=== PATIENT | female | born 1975 | race Caucasian/White ===

== ENCOUNTER 2016-04-19 10:21 | Inpatient (IN) | payer SELFPAY ==
[~2016-04-19] VITALS: Ht 167.6 cm; Wt 153.8 kg
--- NOTE | ~2016-04-19 | CON ---
[place], [place] REPORT OF CONSULTATION NAME: JAKY MCCLOUD [facility] #: [id number] UNIT #: [id number] ROOM: 521 DOCTOR: FLAVIO HORNER MDJUSTIN BIRTHDATE: [birth year] DOS: 04/20/2016 PULMONARY CONSULTATION, EVALUATION AND MANAGEMENT REASON FOR CONSULTATION: Assess the patient for asthma, acute exacerbation. HISTORY OF PRESENT ILLNESS: A 41-year-old white female with known history of bronchial asthma unknown severity presented to the Emergency Room. The patient has developed symptoms of progressive cough with chest congestion, coughing for the past 1 month. The symptoms has been noted progressively worsened. She has been seen in the Emergency Room recently and was given some medications including antibiotics and steroids. The patient stated that she has taken the medication, but failed to show the improvement in the symptoms. The coughing has been noted moderately severely, which was noted nonproductive. Denies symptoms of chest pain. Denies symptoms of wheezing. Tightness in the chest was described at times. REVIEW OF SYSTEMS: CONSTITUTIONAL: Fatigue and tiredness noted without any symptoms of fever or chills. EYES: Denies burning, redness, or tenderness. EARS, NOSE, THROAT SYMPTOMS. Denies sore throat, hoarseness, or otalgia. CARDIOVASCULAR: Denies anginal pain, edema or pain of the lower extremities. GASTROINTESTINAL: No dysphagia, nausea, vomiting, diarrhea, abdominal pain, hematemesis, melena, dysphagia, or abnormal weight loss. SKIN: No lesions or rashes. CENTRAL NERVOUS SYSTEM: No dizziness, headache, diplopia or seizures. Remaining systems were reviewed with the patient and they were noted all negative. PAST MEDICAL HISTORY: 1. Essential hypertension. 2. Gout. 3. Bronchial asthma, unknown severity. 4. Chronic obesity. SOCIAL HISTORY: The patient has been noted past history of cigar use. She denies history of alcohol or illicit drug use. She is single and does not have any children. FAMILY HISTORY: Father at the age of 6767 years old, complication of hypertension and sepsis. Mother at the age of 7676 years old, complications related to stroke. HOME MEDICATIONS: Noted use of Advair 250/50 one puff b.i.d., lisinopril with hydrochlorothiazide 10/12.5 one daily, albuterol sulfate 2.5 mg nebulizer q.i.d. p.r.n. for shortness of breath. DRUG ALLERGIES: Noted no known drug allergies. [place], [place] REPORT OF CONSULTATION NAME: JAKY MCCLOUD [facility] #: [id number] UNIT #: [id number] ROOM: 521 DOCTOR: JUSTIN HOU MD BIRTHDATE: [birth year] PHYSICAL EXAMINATION: GENERAL: A 41-year-old female who has been noted currently awake and alert without any acute distress. Vitals were recorded on current admission with height of 5 feet 6 inches, weight of 339 pounds, BMI of 54.7. VITAL SIGNS: Shows normal temperature, respiratory rate 20-17, heart rate 86, blood pressure 142/69-158/70. Intake is 1050 and output 1200 mL. Pulse oxygen saturation on room air 92% saturation. HEENT: Examination shows head was atraumatic. Eyes nonicterus. NECK: Supple and obese. CARDIOVASCULAR SYSTEM: S1, S2 audible. LUNGS: For the patient noted without any wheeze or crackles at this time. Breaths are noted generally diminished bilaterally. ABDOMEN: Soft, obese, nontender. Bowel sounds present. CENTRAL NERVOUS SYSTEM: No focal deficit. Cranial nerves 2-12 intact. EXTREMITIES: Showed no edema, clubbing, cyanosis. MUSCULOSKELETAL: No deformities. LABORATORY DATA: CBC that was done yesterday of the patient was essentially noted normal except eosinophils of 7%. CMP of the patient which were done yesterday was normal. Chest x-ray PA and lateral of the patient shows evidence of small area of basilar interstitial infiltration of the lower lungs, remaining lungs were noted clear. There was no pleural fluid or finding of congestive heart failure. CBC this morning: WBC count 18.9. Remaining CBC of the patient was noted as normal. PT and PTT were normal today. CMP this morning, glucose 152. Remaining labs were normal. IMPRESSION: 1. The patient who has been currently admitted to the hospital noted with evidence of acute bronchial asthma for this patient with acute tracheobronchitis severity unknown. 2. Leukocytosis secondary to use of corticosteroids. 3. Eosinophilia secondary to allergic bronchial asthma component. 4. Mild hyperglycemia secondary to use of corticosteroids. 5. History of essential hypertension. 6. Chronic severe morbid obesity. PLAN OF TREATMENT: Solu-Medrol for the patient will be gradually reduced. Continue bronchodilators, oxygen supplementation, home medications, antibiotics. Change in treatment will be done based on the progression of the illness. Usual care, other supportive therapy, plan of management and other treatment and care. Thanks for allowing me to participate in the care of this patient. [place], [place] REPORT OF CONSULTATION NAME: JAKY MCCLOUD UNIT #: [id number] ROOM: 521 DOCTOR: JUSTIN HOU MD BIRTHDATE: [birth year] JUSTIN MUNIZ MD CM:CONSTR:REPORT OF CONSULTATION 1007 04/20/16 [facility] interface
[~2016-04-19 10:21] MED LIST: 'PARAFON FORTE500 M1 PO; ADVAIR 250/501 EA INH; ADVAIR 500/501 E1 INH; ALBUTEROL0.09 MG/A2 IH; ALBUTEROL0.09 MG/A2 INH; ALBUTEROL2.5 MG/0.5 INH; AMOXICILLIN500 MG PO; ANTIBIOTIC O500 U/GM TP; ATARAX25 MG PO; CLARITIN10 MG PO; CLINDAMYCIN HC300 MG PO; COLCHICINE0.6 MG PO; CYCLOBENZAPRINE10 MG PO; DAYPRO600 M1 PO; DOXYCYCLINE100 M3 PO; EES400 MG PO; ERYTHROMYCIN OPH1 GM OPH; FLEXERIL10 MG PO; FLONASE 0.05% 121 EA NAS; FLONASE ALLERG9.9 ML NAS; FLOXIN 0.3% 00.25 ML OT; HYDROCODONE BIT1 T11 PO; IBU-8800 MG PO; IBU800 MG PO; INDOCIN25 MG PO; KENALOG0.1% TP; LISINOPRIL AND1 TAB PO; MEDROL DOSEPAK4 MG PO; MOTRIN800 MG PO; NAPROSYN500 MG PO; NORCO 325 MG-51 TAB PO; NORCO 5-325 TA1 EACH PO; OMEPRAZOLE20 MG PO; PREDNICOT10 MG PO; PREDNISONE10 MG PO; PROAIR HFA0.09 MG/AC IH; QVAR 80MCG/INH7.3 G1 IH; ROBITUSSIN AC 110 ML PO; SINGULAIR10 MG PO; TRAMADOL HCL50 MG PO; VENTOLIN 02.5 MG/3 M INH; VENTOLIN,PR2 MG/5 ML PO; VIBRAMYCIN100 MG PO; VICODIN 5/500 505 MG PO; VICODIN 500 MG-1 TAB PO; ZITHROMAX Z PA250 MG PO; ZYRTEC10 MG PO
[2016-04-19 10:39] VITALS: BP 140/69
[2016-04-19 11:05] LABS: BASO % 0.4 % (0.0-1.0); EOS # 0.6 10*3/uL (0.0-0.4); HEMATOCRIT 42.2 % (37.0-47.0); HEMOGLOBIN 13.2 g/dl (12.0-16.0); LYMPH # 1.9 10*3/uL (1.3-4.4); LYMPH % 20.9 % (27.0-41.0); MEAN CELL VOLUME 90.9 fl (81.0-99.0); MEAN CORPUSCULAR HGB 28.4 pg (27.0-31.0); MEAN CORPUSCULAR HGB CONC 31.3 g/dl (33.0-37.0); MEAN PLATELET VOLUME 9.5 fl (9.6-12.3); MONO # 0.4 10*3/uL (0.1-1.0); MONO % 4.1 % (3.0-9.0); NEUT # 6.2 10*3/uL (2.3-7.9); NEUT % 67.3 % (47.0-73.0); PLATELET COUNT AUTOMATED 267 10*3/uL (130-400); RED BLOOD COUNT 4.64 10*6/uL (4.10-5.10); RED CELL DISTRI WIDTH 13.1 % (0-14.5); WHITE BLOOD COUNT 9.2 10*3/uL (4.8-10.8)
[2016-04-19 11:19] LABS: ALBUMIN 3.3 gm/dl (3.1-4.5); ALKALINE PHOSPHATASE 76 U/L (45-117); BILIRUBIN, TOTAL 0.4 mg/dl (0.2-1.0); BUN 7 mg/dl (7-24); CARBON DIOXIDE 25 mmol/L (21-32); CHLORIDE 105 mmol/L (98-107); EST GLOM FILT AFRICAN AMERICAN > 60 ml/min; GLUCOSE 99 mg/dL (65-99); POTASSIUM 4.2 mmol/L (3.5-5.1); SGOT/AST 8 IU/L (3-35); SGPT/ALT 25 U/L (12-78); SODIUM 140 mmol/L (136-145); TOTAL PROTEIN 7.8 gm/dL (6.4-8.2)
[2016-04-19] MEDS ORDERED: ALBUTEROL 3 ML 33 ML INH (11:33)
[2016-04-19 11:46] LABS: BILIRUBIN NEGATIVE (NEGATIVE); BLOOD TRACE-LYSED (NEGATIVE); CLARITY CLEAR (CLEAR); COLOR YELLOW (YELLOW); GLUCOSE NEGATIVE (NEGATIVE); KETONE NEGATIVE (NEGATIVE); LEUKO ESTERASE NEGATIVE (NEGATIVE); NITRITE NEGATIVE (NEGATIVE); PROTEIN NEGATIVE (NEGATIVE); UROBILINOGEN 0.2 E.U./dl (0.2-1.0)
[2016-04-19 11:53] LABS: BACTERIA TRACE; URINE REFLEX COMMENT NO (NO)
[2016-04-19 12:51] VITALS: BP 176/86
[2016-04-19 14:36] VITALS: BP 147/75
[2016-04-19 16:00] VITALS: BP 158/70
[2016-04-19 20:00] VITALS: BP 147/73
[2016-04-20] VITALS: BP 144/54
[2016-04-20 06:49] LABS: BASO % 0.1 % (0.0-1.0); HEMATOCRIT 40.5 % (37.0-47.0); HEMOGLOBIN 12.8 g/dl (12.0-16.0); IG # 0.2 10*3/uL (0.0-0.1); LYMPH # 1.4 10*3/uL (1.3-4.4); LYMPH % 7.2 % (27.0-41.0); MEAN CELL VOLUME 89.6 fl (81.0-99.0); MEAN CORPUSCULAR HGB 28.3 pg (27.0-31.0); MEAN CORPUSCULAR HGB CONC 31.6 g/dl (33.0-37.0); MEAN PLATELET VOLUME 10.1 fl (9.6-12.3); MONO # 0.4 10*3/uL (0.1-1.0); MONO % 2.1 % (3.0-9.0); NEUT % 89.7 % (47.0-73.0); PLATELET COUNT AUTOMATED 295 10*3/uL (130-400); RED BLOOD COUNT 4.52 10*6/uL (4.10-5.10); RED CELL DISTRI WIDTH 13.2 % (0-14.5); WHITE BLOOD COUNT 18.9 10*3/uL (4.8-10.8)
[2016-04-20 07:00] LABS: INTERNATIONAL NORM RATIO 0.9 (2.0-3.5)
[2016-04-20 07:13] LABS: ALBUMIN 3.2 gm/dl (3.1-4.5); ALKALINE PHOSPHATASE 69 U/L (45-117); BILIRUBIN, TOTAL 0.4 mg/dl (0.2-1.0); BUN 11 mg/dl (7-24); CARBON DIOXIDE 24 mmol/L (21-32); CHLORIDE 105 mmol/L (98-107); EST GLOM FILT AFRICAN AMERICAN > 60 ml/min; GLUCOSE 152 mg/dL (65-99); POTASSIUM 4.5 mmol/L (3.5-5.1); SGOT/AST 5 IU/L (3-35); SGPT/ALT 20 U/L (12-78); SODIUM 139 mmol/L (136-145); TOTAL PROTEIN 7.6 gm/dL (6.4-8.2)
[2016-04-20 07:22] LABS: FREE T4 0.99 ng/dl (0.76-1.46); MAGNESIUM 2.2 mg/dL (1.5-2.1); THYROID STIM HORMONE (HS) 0.472 uIU/ml (0.358-4.75)
[2016-04-20 07:53] LABS: HEMOGLOBIN A1c 5.6 % (4.8-5.6)
[2016-04-20 08:00] VITALS: BP 143/69
[2016-04-20 08:32] LABS: FOLIC ACID 6.01 ng/mL (>5.38)
== END 2016-04-20 09:40 | disposition left against medical advice (07) | DRG 202 ==
LOC: ED 10:21 → 5E 13:23 → EDHOLD 13:23 → 5E 14:20
PROVIDERS: Hospitalist; Registered Nurse
DX: J45.901 Unspecified asthma with (acute) exacerbation (principal); Z68.43 Body mass index [BMI] 50.0-59.9, adult; I10 Essential (primary) hypertension; M1A.9XX0 Chronic gout, unspecified, without tophus (tophi); J20.9 Acute bronchitis, unspecified; D72.829 Elevated white blood cell count, unspecified; T38.0X5A Adverse effect of glucocorticoids and synthetic analogues, initial encounter; R73.9 Hyperglycemia, unspecified; E66.01 Morbid (severe) obesity due to excess calories; E66.9 Obesity, unspecified; Z79.899 Other long term (current) drug therapy; Z82.49 Family history of ischemic heart disease and other diseases of the circulatory system; Z82.3 Family history of stroke; Z87.891 Personal history of nicotine dependence

== ENCOUNTER 2016-07-10 06:27 | Emergency (ER) | payer SELFPAY ==
[~2016-07-10] VITALS: Ht 167.6 cm; Wt 127.0 kg
[~2016-07-10 06:27] MED LIST changes: +ALBUTEROL 3 ML 33 ML INH
[2016-07-10 06:33] VITALS: BP 146/82
[2016-07-10 07:08] LABS: BASO % 0.5 % (0.0-1.0); EOS # 0.8 10*3/uL (0.0-0.4); EOS % 12.8 % (1.0-4.0); HEMATOCRIT 38.9 % (37.0-47.0); HEMOGLOBIN 12.5 g/dl (12.0-16.0); LYMPH # 1.4 10*3/uL (1.3-4.4); LYMPH % 21.1 % (27.0-41.0); MEAN CELL VOLUME 87.4 fl (81.0-99.0); MEAN CORPUSCULAR HGB 28.1 pg (27.0-31.0); MEAN CORPUSCULAR HGB CONC 32.1 g/dl (33.0-37.0); MEAN PLATELET VOLUME 9.7 fl (9.6-12.3); MONO # 0.3 10*3/uL (0.1-1.0); MONO % 5.2 % (3.0-9.0); NEUT # 3.9 10*3/uL (2.3-7.9); NEUT % 60.1 % (47.0-73.0); PLATELET COUNT AUTOMATED 216 10*3/uL (130-400); RED BLOOD COUNT 4.45 10*6/uL (4.10-5.10); RED CELL DISTRI WIDTH 12.8 % (0-14.5); WHITE BLOOD COUNT 6.4 10*3/uL (4.8-10.8)
[2016-07-10 07:30] LABS: ALBUMIN 3.2 gm/dl (3.1-4.5); ALKALINE PHOSPHATASE 66 U/L (45-117); BILIRUBIN, TOTAL 0.5 mg/dl (0.2-1.0); BUN 6 mg/dl (7-24); CARBON DIOXIDE 27 mmol/L (21-32); CHLORIDE 107 mmol/L (98-107); EST GLOM FILT AFRICAN AMERICAN > 60 ml/min; GLUCOSE 93 mg/dL (65-99); POTASSIUM 3.8 mmol/L (3.5-5.1); SGOT/AST 14 IU/L (3-35); SGPT/ALT 26 U/L (12-78); SODIUM 141 mmol/L (136-145); TOTAL PROTEIN 7.3 gm/dL (6.4-8.2)
[2016-07-10] MEDS ORDERED: PREDNISONE20 M1 PO (08:06)
== END 2016-07-10 08:14 | disposition home or self-care (01) ==
LOC: ED 06:27
PROVIDERS: Family Medicine Sports Medicine
DX: J45.21 Mild intermittent asthma with (acute) exacerbation (principal); I10 Essential (primary) hypertension; M10.9 Gout, unspecified; Z87.891 Personal history of nicotine dependence; Z98.890 Other specified postprocedural states; Z79.899 Other long term (current) drug therapy

== ENCOUNTER 2016-08-05 19:35 | Emergency (ER) | payer SELFPAY ==
[~2016-08-05] VITALS: Ht 167.6 cm; Wt 127.0 kg
[~2016-08-05 19:35] MED LIST changes: +PREDNISONE20 M1 PO
[2016-08-05 19:41] VITALS: BP 169/93
[2016-08-05] MEDS ORDERED: ALBUTEROL2.5 MG/0.5 INH (20:29)
[2016-08-05] MEDS ORDERED: PROVENTIL0.09 MG/A1 INH (20:29)
[2016-08-05] MEDS ORDERED: PREDNISONE10 MG PO (20:31)
[2016-08-05] MEDS ORDERED: ZITHROMAX250 MG PO (20:47)
== END 2016-08-05 21:01 | disposition home or self-care (01) ==
LOC: ED 19:35
DX: J45.909 Unspecified asthma, uncomplicated (principal); F17.200 Nicotine dependence, unspecified, uncomplicated

== ENCOUNTER 2016-09-12 12:22 | Emergency (ER) | payer OTHER ==
[~2016-09-12] VITALS: Ht 167.6 cm; Wt 127.0 kg
[~2016-09-12 12:22] MED LIST changes: +PROVENTIL0.09 MG/A1 INH; +ZITHROMAX250 MG PO
[2016-09-12 12:50] VITALS: BP 146/88
[2016-09-12] MEDS ORDERED: VENTOLIN H0.09 MG/AC INH (14:12)
[2016-09-12] MEDS ORDERED: CYCLOBENZAPRINE10 MG PO (14:12)
[2016-09-12] MEDS ORDERED: Motrin,Rufen800 MG PO (14:12)
== END 2016-09-12 14:22 | disposition home or self-care (01) ==
LOC: ED 12:22
DX: S39.012A Strain of muscle, fascia and tendon of lower back, initial encounter (principal); X58.XXXA Exposure to other specified factors, initial encounter; Y93.89 Activity, other specified; Y92.89 Other specified places as the place of occurrence of the external cause; Y99.8 Other external cause status

== ENCOUNTER 2016-11-25 19:09 | Emergency (ER) | payer SELFPAY ==
[~2016-11-25] VITALS: Ht 167.6 cm; Wt 124.7 kg
[~2016-11-25 19:09] MED LIST changes: +Motrin,Rufen800 MG PO; +VENTOLIN H0.09 MG/AC INH
[2016-11-25 19:17] VITALS: BP 161/82
[2016-11-25] MEDS ORDERED: PREDNISONE10 MG PO (20:28)
[2016-11-25] MEDS ORDERED: DUONEB 3 MG/3 ML3 M1 INH (20:28)
== END 2016-11-25 23:08 | disposition home or self-care (01) ==
LOC: ED 19:09
DX: J45.909 Unspecified asthma, uncomplicated (principal); R03.0 Elevated blood-pressure reading, without diagnosis of hypertension; M10.9 Gout, unspecified

== ENCOUNTER 2016-12-13 10:43 | Emergency (ER) | payer SELFPAY ==
[~2016-12-13] VITALS: Wt 127.0 kg
[~2016-12-13 10:43] MED LIST changes: +DUONEB 3 MG/3 ML3 M1 INH
[2016-12-13 10:53] VITALS: BP 115/51
[2016-12-13] MEDS ORDERED: NORCO 5-325 TA1 EACH PO (12:09)
== END 2016-12-13 12:20 | disposition home or self-care (01) ==
LOC: ED 10:43
DX: M54.41 Lumbago with sciatica, right side (principal); Z87.891 Personal history of nicotine dependence; Z98.890 Other specified postprocedural states; Z79.899 Other long term (current) drug therapy; W10.8XXA Fall (on) (from) other stairs and steps, initial encounter; Y93.89 Activity, other specified; Y92.89 Other specified places as the place of occurrence of the external cause; Y99.9 Unspecified external cause status

== ENCOUNTER 2017-01-26 10:47 | Emergency (ER) | payer SELFPAY ==
[~2017-01-26] VITALS: Ht 167.6 cm; Wt 127.0 kg
[2017-01-26 10:55] VITALS: BP 120/84
[2017-01-26] MEDS ORDERED: CLARITIN10 MG PO (11:01)
[2017-01-26] MEDS ORDERED: FLONASE ALLERG9.9 ML NAS (11:01)
[2017-01-26] MEDS ORDERED: DUONEB 3 MG/3 ML3 M1 INH (11:01)
[2017-01-26] MEDS ORDERED: PREDNISONE10 MG PO (11:01)
== END 2017-01-26 11:37 | disposition home or self-care (01) ==
LOC: ED 10:47
DX: J45.901 Unspecified asthma with (acute) exacerbation (principal); R03.0 Elevated blood-pressure reading, without diagnosis of hypertension

== ENCOUNTER 2017-03-27 06:14 | Emergency (ER) | payer OTHER ==
[~2017-03-27] VITALS: Ht 165.1 cm; Wt 127.0 kg
[2017-03-27 06:28] VITALS: BP 147/59
[2017-03-27] MEDS ORDERED: Motrin,Rufen800 MG PO (07:34)
== END 2017-03-27 08:41 | disposition home or self-care (01) ==
LOC: ED 06:14
DX: S83.91XA Sprain of unspecified site of right knee, initial encounter (principal); I10 Essential (primary) hypertension; J45.909 Unspecified asthma, uncomplicated; F10.10 Alcohol abuse, uncomplicated; W22.8XXA Striking against or struck by other objects, initial encounter; Y93.89 Activity, other specified; Y92.098 Other place in other non-institutional residence as the place of occurrence of the external cause; Y99.0 Civilian activity done for income or pay

== ENCOUNTER 2017-04-16 18:53 | Emergency (ER) | payer OTHER ==
[~2017-04-16] VITALS: Ht 167.6 cm; Wt 127.0 kg
[2017-04-16 19:59] VITALS: BP 136/72
== END 2017-04-16 20:40 | disposition home or self-care (01) ==
LOC: ED 18:53
DX: S29.011A Strain of muscle and tendon of front wall of thorax, initial encounter (principal); Z98.890 Other specified postprocedural states; X50.1XXA Overexertion from prolonged static or awkward postures, initial encounter; Y93.89 Activity, other specified; Y92.098 Other place in other non-institutional residence as the place of occurrence of the external cause; Y99.9 Unspecified external cause status

== ENCOUNTER 2017-04-23 05:25 | Emergency (ER) | payer OTHER ==
[~2017-04-23] VITALS: Ht 167.6 cm; Wt 127.0 kg
[2017-04-23 05:34] VITALS: BP 170/66
[2017-04-23] MEDS ORDERED: DUONEB 3 MG/3 ML3 M1 INH (06:18)
[2017-04-23] MEDS ORDERED: KETOROLAC10 MG PO (06:18)
[2017-04-23] MEDS ORDERED: ZITHROMAX250 MG PO (06:24)
== END 2017-04-23 06:43 | disposition home or self-care (01) ==
LOC: ED 05:25
DX: S23.41XA Sprain of ribs, initial encounter (principal); J40 Bronchitis, not specified as acute or chronic; J45.909 Unspecified asthma, uncomplicated; M10.9 Gout, unspecified; I10 Essential (primary) hypertension; Z79.899 Other long term (current) drug therapy; X58.XXXA Exposure to other specified factors, initial encounter; Y93.89 Activity, other specified; Y92.89 Other specified places as the place of occurrence of the external cause; Y99.8 Other external cause status

== ENCOUNTER 2017-06-02 22:13 | Emergency (ER) | payer OTHER ==
[~2017-06-02] VITALS: Ht 167.6 cm; Wt 124.7 kg
[~2017-06-02 22:13] MED LIST changes: +KETOROLAC10 MG PO
[2017-06-02] MEDS ORDERED: PREDNISONE10 MG PO (23:10)
[2017-06-02] MEDS ORDERED: ALBUTEROL2.5 MG/0.5 INH (23:10)
[2017-06-02 23:26] VITALS: BP 144/80
== END 2017-06-02 23:58 | disposition home or self-care (01) ==
LOC: ED 22:13
DX: J45.901 Unspecified asthma with (acute) exacerbation (principal); F10.10 Alcohol abuse, uncomplicated; Z91.048 Other nonmedicinal substance allergy status; Z79.899 Other long term (current) drug therapy

== ENCOUNTER 2017-06-23 13:52 | Emergency (ER) | payer OTHER ==
[~2017-06-23] VITALS: Ht 167.6 cm; Wt 127.0 kg
[2017-06-23] MEDS ORDERED: DUONEB 3 MG/3 ML3 M1 INH (14:56)
[2017-06-23] MEDS ORDERED: ADVAIR 250/501 EA INH (14:56)
[2017-06-23] MEDS ORDERED: PREDNISONE10 MG PO ×2 (14:59→15:20)
[2017-06-23 15:20] VITALS: BP 147/79
[2017-06-23] MEDS ORDERED: AVPAK AZITHROM250 M1 PO (15:20)
== END 2017-06-23 15:24 | disposition home or self-care (01) ==
LOC: ED 13:52
DX: J45.901 Unspecified asthma with (acute) exacerbation (principal); M79.644 Pain in right finger(s)

== ENCOUNTER → 2017-07-10 | Outpatient (CLI) | payer OTHER ==
[~2017-07-10] MED LIST changes: +AVPAK AZITHROM250 M1 PO
== END | disposition home or self-care (01) ==
LOC: RESCLI 02:32
DX: Z12.31 Encounter for screening mammogram for malignant neoplasm of breast (principal); I10 Essential (primary) hypertension; R60.0 Localized edema; F33.1 Major depressive disorder, recurrent, moderate; M19.90 Unspecified osteoarthritis, unspecified site; E66.01 Morbid (severe) obesity due to excess calories; J45.909 Unspecified asthma, uncomplicated; Z76.89 Persons encountering health services in other specified circumstances

== ENCOUNTER 2017-08-13 19:21 | Emergency (ER) | payer OTHER ==
[~2017-08-13] VITALS: Ht 172.7 cm; Wt 113.4 kg
[2017-08-13 19:31] VITALS: BP 126/74
[2017-08-13 20:45] LABS: BASO % 0.5 % (0.0-1.0); EOS # 0.3 10*3/uL (0.0-0.4); EOS % 4.9 % (1.0-4.0); HEMATOCRIT 37.9 % (37.0-47.0); HEMOGLOBIN 11.9 g/dl (12.0-16.0); LYMPH # 0.9 10*3/uL (1.3-4.4); LYMPH % 15.3 % (27.0-41.0); MEAN CELL VOLUME 91.8 fl (81.0-99.0); MEAN CORPUSCULAR HGB 28.8 pg (27.0-31.0); MEAN CORPUSCULAR HGB CONC 31.4 g/dl (33.0-37.0); MONO # 0.5 10*3/uL (0.1-1.0); MONO % 8.7 % (3.0-9.0); NEUT # 3.9 10*3/uL (2.3-7.9); NEUT % 70.2 % (47.0-73.0); PLATELET COUNT AUTOMATED 202 10*3/uL (130-400); RED BLOOD COUNT 4.13 10*6/uL (4.10-5.10); RED CELL DISTRI WIDTH 13.2 % (0-14.5); WHITE BLOOD COUNT 5.5 10*3/uL (4.8-10.8)
[2017-08-13 21:05] LABS: ALKALINE PHOSPHATASE 64 U/L (45-117); BUN 13 mg/dl (7-24); CHLORIDE 106 mmol/L (98-107); CREATININE 0.69 mg/dL (0.55-1.02); POTASSIUM 3.9 mmol/L (3.5-5.1); SGOT/AST 11 IU/L (3-35); SGPT/ALT 19 U/L (12-78); SODIUM 139 mmol/L (136-145); TOTAL PROTEIN 6.5 gm/dL (6.4-8.2)
[2017-08-13 21:24] LABS: BILIRUBIN NEGATIVE (NEGATIVE); BLOOD NEGATIVE (NEGATIVE); CLARITY SL CLOUDY (CLEAR); COLOR YELLOW (YELLOW); GLUCOSE NEGATIVE (NEGATIVE); KETONE NEGATIVE (NEGATIVE); LEUKO ESTERASE NEGATIVE (NEGATIVE); NITRITE NEGATIVE (NEGATIVE); UROBILINOGEN 0.2 E.U./dl (0.2-1.0)
[2017-08-13 21:32] LABS: BACTERIA TRACE; EPITHELIAL CELLS 16-20
[2017-08-13] MEDS ORDERED: DOXYCYCLINE100 M3 PO (22:07)
== END 2017-08-13 22:18 | disposition home or self-care (01) ==
LOC: ED 19:21
PROVIDERS: Nurse Practitioner
DX: J32.1 Chronic frontal sinusitis (principal); I10 Essential (primary) hypertension

== ENCOUNTER 2017-10-21 20:34 | Emergency (ER) | payer OTHER ==
[~2017-10-21] VITALS: Ht 167.6 cm; Wt 127.0 kg
[2017-10-21 21:44] LABS: BASO % 0.3 % (0.0-1.0); EOS # 0.5 10*3/uL (0.0-0.4); EOS % 7.5 % (1.0-4.0); HEMOGLOBIN 12.1 g/dl (12.0-16.0); LYMPH # 1.4 10*3/uL (1.3-4.4); LYMPH % 19.9 % (27.0-41.0); MEAN CELL VOLUME 91.1 fl (81.0-99.0); MEAN CORPUSCULAR HGB 27.6 pg (27.0-31.0); MEAN CORPUSCULAR HGB CONC 30.3 g/dl (33.0-37.0); MEAN PLATELET VOLUME 9.3 fl (9.6-12.3); MONO # 0.4 10*3/uL (0.1-1.0); MONO % 5.2 % (3.0-9.0); NEUT # 4.7 10*3/uL (2.3-7.9); NEUT % 66.7 % (47.0-73.0); PLATELET COUNT AUTOMATED 246 10*3/uL (130-400); RED BLOOD COUNT 4.39 10*6/uL (4.10-5.10); RED CELL DISTRI WIDTH 13.7 % (0-14.5); WHITE BLOOD COUNT 7.1 10*3/uL (4.8-10.8)
[2017-10-21 22:00] LABS: ALBUMIN 3.3 gm/dl (3.1-4.5); ALKALINE PHOSPHATASE 66 U/L (45-117); BUN 13 mg/dl (7-24); CHLORIDE 111 mmol/L (98-107); POTASSIUM 4.6 mmol/L (3.5-5.1); SGOT/AST 11 IU/L (3-35); SGPT/ALT 16 U/L (12-78); SODIUM 143 mmol/L (136-145); TOTAL PROTEIN 7.2 gm/dL (6.4-8.2)
[2017-10-21 22:04] LABS: TROPONIN I < 0.015 ng/ml (<0.045)
[2017-10-21] MEDS ORDERED: LASIX20 MG PO (22:05)
[2017-10-21 22:24] VITALS: BP 125/54
[2017-12-06] MEDS ORDERED: PREDNISONE50 MG PO (20:15)
[2017-12-06] MEDS ORDERED: DOXYCYCLINE100 M3 PO (20:15)
[2017-12-06] MEDS ORDERED: LISINOPRIL10 M1 PO (20:15)
[2017-12-06] MEDS ORDERED: ROBITUSSIN DM 101 OZ PO (20:15)
[2017-12-06] MEDS ORDERED: ALBUTEROL0.63 MG/3 INH (20:15)
== END 2017-10-21 22:30 | disposition home or self-care (01) ==
LOC: ED 20:34
PROVIDERS: Student in an Organized Health Care Education/Training Program
DX: M79.89 Other specified soft tissue disorders (principal); M79.604 Pain in right leg; M79.605 Pain in left leg; I10 Essential (primary) hypertension; J45.909 Unspecified asthma, uncomplicated

== ENCOUNTER → 2018-01-03 | Outpatient (CLI) | payer OTHER ==
[~2018-01-03] MED LIST changes: +ALBUTEROL0.63 MG/3 INH; +AVPAK AZITHROM250 MG PO; +DELTASONE20 M1 PO; +GUAIFENESIN600 MG PO; +LASIX20 MG PO; +LISINOPRIL10 M1 PO; +PREDNISONE50 MG PO; +PROVENTIL HFA6.7 GM INH; +ROBITUSSIN DM 101 OZ PO
== END | disposition home or self-care (01) ==
LOC: US 11:30
DX: M79.661 Pain in right lower leg (principal); R60.0 Localized edema

== ENCOUNTER 2018-01-06 12:31 | Emergency (ER) | payer OTHER ==
[~2018-01-06] VITALS: Ht 162.5 cm; Wt 127.0 kg
[~2018-01-06 12:31] MED LIST changes: -AVPAK AZITHROM250 MG PO; -DELTASONE20 M1 PO; -GUAIFENESIN600 MG PO; -PROVENTIL HFA6.7 GM INH
[2018-01-06 12:38] VITALS: BP 160/54
[2018-03-19] MEDS ORDERED: AVPAK AZITHROM250 MG PO (08:48)
[2018-03-19] MEDS ORDERED: GUAIFENESIN600 MG PO (08:48)
[2018-03-19] MEDS ORDERED: PREDNISONE10 MG PO (08:48)
== END 2018-01-06 14:08 | disposition home or self-care (01) ==
LOC: ED 12:31
DX: M25.571 Pain in right ankle and joints of right foot (principal); Z87.891 Personal history of nicotine dependence; Z79.899 Other long term (current) drug therapy; Z98.890 Other specified postprocedural states; W19.XXXA Unspecified fall, initial encounter; Y93.89 Activity, other specified; Y92.89 Other specified places as the place of occurrence of the external cause; Y99.9 Unspecified external cause status

== ENCOUNTER 2018-02-15 08:55 | Emergency (ER) | payer OTHER ==
[~2018-02-15] VITALS: Ht 165.1 cm; Wt 127.0 kg
[2018-02-15 08:59] VITALS: BP 151/75
[2018-02-15] MEDS ORDERED: PROVENTIL HFA6.7 GM INH (10:46)
[2018-02-15] MEDS ORDERED: VIBRAMYCIN100 MG PO (10:46)
[2018-02-15] MEDS ORDERED: DELTASONE20 M1 PO (10:46)
[2018-03-19] MEDS ORDERED: AVPAK AZITHROM250 MG PO (08:48)
[2018-03-19] MEDS ORDERED: PREDNISONE10 MG PO (08:48)
[2018-03-19] MEDS ORDERED: GUAIFENESIN600 MG PO (08:48)
== END 2018-02-15 11:05 | disposition home or self-care (01) ==
LOC: ED 08:55
DX: J44.1 Chronic obstructive pulmonary disease with (acute) exacerbation (principal); I10 Essential (primary) hypertension; Z91.048 Other nonmedicinal substance allergy status; Z79.899 Other long term (current) drug therapy; Z79.2 Long term (current) use of antibiotics; Z87.891 Personal history of nicotine dependence

== ENCOUNTER 2018-02-27 13:17 | Emergency (ER) | payer OTHER ==
[~2018-02-27] VITALS: Ht 165.1 cm; Wt 127.0 kg
[~2018-02-27 13:17] MED LIST changes: +DELTASONE20 M1 PO; +PROVENTIL HFA6.7 GM INH
[2018-02-27 13:19] VITALS: BP 145/63
[2018-02-27] MEDS ORDERED: NORCO 5-325 TA1 EACH PO (15:24)
[2018-02-27] MEDS ORDERED: Motrin,Rufen800 MG PO (15:24)
[2018-03-19] MEDS ORDERED: PREDNISONE10 MG PO (08:48)
[2018-03-19] MEDS ORDERED: GUAIFENESIN600 MG PO (08:48)
[2018-03-19] MEDS ORDERED: AVPAK AZITHROM250 MG PO (08:48)
== END 2018-02-27 15:28 | disposition home or self-care (01) ==
LOC: ED 13:17
DX: S70.02XA Contusion of left hip, initial encounter (principal); M25.562 Pain in left knee; J44.9 Chronic obstructive pulmonary disease, unspecified; I10 Essential (primary) hypertension; Z87.891 Personal history of nicotine dependence; Z91.048 Other nonmedicinal substance allergy status; Z79.899 Other long term (current) drug therapy; Z79.2 Long term (current) use of antibiotics; W18.2XXA Fall in (into) shower or empty bathtub, initial encounter; Y93.89 Activity, other specified; Y92.098 Other place in other non-institutional residence as the place of occurrence of the external cause; Y99.8 Other external cause status

== ENCOUNTER 2018-03-02 13:15 | Emergency (ER) | payer OTHER ==
[~2018-03-02] VITALS: Ht 165.1 cm; Wt 127.0 kg
[2018-03-02 13:17] VITALS: BP 150/66
[2018-03-19] MEDS ORDERED: AVPAK AZITHROM250 MG PO (08:48)
[2018-03-19] MEDS ORDERED: GUAIFENESIN600 MG PO (08:48)
[2018-03-19] MEDS ORDERED: PREDNISONE10 MG PO (08:48)
== END 2018-03-02 13:41 | disposition home or self-care (01) ==
LOC: ED 13:15
DX: M25.552 Pain in left hip (principal); I10 Essential (primary) hypertension; J44.9 Chronic obstructive pulmonary disease, unspecified; M10.9 Gout, unspecified; W19.XXXA Unspecified fall, initial encounter; Y93.89 Activity, other specified; Y92.89 Other specified places as the place of occurrence of the external cause; Y99.8 Other external cause status

== ENCOUNTER 2018-03-16 07:00 | Emergency (ER) | payer OTHER ==
[~2018-03-16] VITALS: Ht 167.6 cm; Wt 127.0 kg
[2018-03-16 07:00] VITALS: BP 171/75
[2018-03-16 07:42] LABS: BASO # 0.1 10*3/uL (0.0-0.1); BASO % 0.6 % (0.0-1.0); EOS # 0.9 10*3/uL (0.0-0.4); EOS % 9.7 % (1.0-4.0); HEMATOCRIT 39.9 % (37.0-47.0); HEMOGLOBIN 12.2 g/dl (12.0-16.0); LYMPH # 1.2 10*3/uL (1.3-4.4); MEAN CELL VOLUME 90.5 fl (81.0-99.0); MEAN CORPUSCULAR HGB 27.7 pg (27.0-31.0); MEAN CORPUSCULAR HGB CONC 30.6 g/dl (33.0-37.0); MEAN PLATELET VOLUME 9.4 fl (9.6-12.3); MONO # 0.5 10*3/uL (0.1-1.0); MONO % 5.4 % (3.0-9.0); NEUT # 6.7 10*3/uL (2.3-7.9); NEUT % 70.7 % (47.0-73.0); PLATELET COUNT AUTOMATED 252 10*3/uL (130-400); RED BLOOD COUNT 4.41 10*6/uL (4.10-5.10); RED CELL DISTRI WIDTH 14.1 % (0-14.5); WHITE BLOOD COUNT 9.5 10*3/uL (4.8-10.8)
[2018-03-16 07:57] LABS: ALBUMIN 3.2 gm/dl (3.1-4.5); ALKALINE PHOSPHATASE 68 U/L (45-117); BUN 9 mg/dl (7-24); CHLORIDE 105 mmol/L (98-107); CREATININE 0.83 mg/dL (0.55-1.02); SGOT/AST 8 IU/L (3-35); SGPT/ALT 14 U/L (12-78); SODIUM 140 mmol/L (136-145); TOTAL PROTEIN 7.2 gm/dL (6.4-8.2)
[2018-03-16] MEDS ORDERED: PREDNISONE20 M1 PO (08:26)
[2018-03-16] MEDS ORDERED: ADVAIR 250/501 EA INH (23:20)
[2018-03-19] MEDS ORDERED: AVPAK AZITHROM250 MG PO (08:48)
[2018-03-19] MEDS ORDERED: PREDNISONE10 MG PO (08:48)
[2018-03-19] MEDS ORDERED: GUAIFENESIN600 MG PO (08:48)
== END 2018-03-16 08:34 | disposition home or self-care (01) ==
LOC: ED 07:00
PROVIDERS: Internal Medicine Nephrology
DX: J44.1 Chronic obstructive pulmonary disease with (acute) exacerbation (principal); I10 Essential (primary) hypertension

== ENCOUNTER 2018-08-03 11:19 | Emergency (ER) | payer OTHER ==
[~2018-08-03] VITALS: Ht 165.1 cm
--- NOTE | ~2018-08-03 | EKG ---
[place], [place] ELECTROCARDIOGRAM REPORT NAME: JAKY MCCLOUD UNIT #: [id number] ROOM: DOCTOR: EPIPHANY DRAFT REPORT BIRTHDATE: [birth year] [facility] Test Date: 2018-08-03 Test Time: 12:19:28 Pat Name: JAKY MCCLOUD Department: Room: Gender: F Mule Driver: [facility] : 1975 Requested By: XENIA MARTINEZ Order Number: [id number] Reading MD: Jairon Gill MD Measurements Intervals [place] Rate: 69 P: 13 TN: 197 QRS: -2 QRSD: 81 T: 12 QT: 389 QTc: 417 Interpretive Statements Sinus rhythm LVH by voltage Compared to ECG 12/06/2017 19:17:06 No significant changes Electronically Signed On 08-05-2018 7:56:47 PDT by Jairon Gill MD CM:EKGRPT:ELECTROCARDIOGRAM REPORT [id number] XENIA MARTINEZ MD EPIPHANY DRAFT REPORT XENIA MARTINEZ MD
[~2018-08-03 11:19] MED LIST changes: +AVPAK AZITHROM250 MG PO; +GUAIFENESIN600 MG PO
[2018-08-03 11:52] LABS: BASO # 0.1 10*3/uL (0.0-0.1); BASO % 0.8 % (0.0-1.0); EOS # 0.5 10*3/uL (0.0-0.4); EOS % 8.3 % (1.0-4.0); HEMATOCRIT 39.1 % (37.0-47.0); HEMOGLOBIN 12.3 g/dl (12.0-16.0); LYMPH # 1.2 10*3/uL (1.3-4.4); LYMPH % 19.7 % (27.0-41.0); MEAN CELL VOLUME 90.3 fl (81.0-99.0); MEAN CORPUSCULAR HGB 28.4 pg (27.0-31.0); MEAN CORPUSCULAR HGB CONC 31.5 g/dl (33.0-37.0); MEAN PLATELET VOLUME 9.2 fl (9.6-12.3); MONO # 0.4 10*3/uL (0.1-1.0); MONO % 6.4 % (3.0-9.0); NEUT % 64.5 % (47.0-73.0); PLATELET COUNT AUTOMATED 251 10*3/uL (130-400); RED BLOOD COUNT 4.33 10*6/uL (4.10-5.10); RED CELL DISTRI WIDTH 13.2 % (0-14.5); WHITE BLOOD COUNT 6.1 10*3/uL (4.8-10.8)
[2018-08-03 12:02] LABS: ACT PARTIAL THROMBO TIME 25.5 SECONDS (20.8-31.5)
[2018-08-03 12:09] LABS: ALBUMIN 3.2 gm/dl (3.1-4.5); ALKALINE PHOSPHATASE 62 U/L (45-117); BUN 13 mg/dl (7-24); CHLORIDE 108 mmol/L (98-107); CREATININE 0.74 mg/dL (0.55-1.02); POTASSIUM 4.1 mmol/L (3.5-5.1); SGOT/AST 10 IU/L (3-35); SGPT/ALT 17 U/L (12-78); SODIUM 139 mmol/L (136-145); TOTAL PROTEIN 7.2 gm/dL (6.4-8.2)
[2018-08-03 12:11] LABS: TROPONIN I < 0.015 ng/ml (<0.045)
[2018-08-03 12:28] VITALS: BP 150/60
--- NOTE | 2018-08-03 12:34 | NUR ---
EKG ORDERED AT 1122AM. I WAS NOT NOTIFIED. EKG DONE AT 1219PM BY TECH
[2018-08-03] MEDS ORDERED: Ipratropium Brom3 ML INH ×2 (12:41→13:12)
[2018-08-03] MEDS ORDERED: VIBRAMYCIN100 MG PO ×2 (12:41→13:12)
[2018-08-03] MEDS ORDERED: POLYSPORIN OINT15 GM T ×2 (12:41→13:12)
[2018-08-03] MEDS ORDERED: ALBUTEROL2.5 MG/0.5 INH ×2 (12:41→13:12)
[2018-08-03] MEDS ORDERED: PREDNISONE50 MG PO ×2 (12:41→13:12)
[2018-10-12] MEDS ORDERED: LISINOPRIL20 MG PO (22:45)
[2018-10-12] MEDS ORDERED: BUMETANIDE1 MG PO (22:46)
[2018-10-12] MEDS ORDERED: ALDACTONE25 M1 PO (22:47)
[2018-10-12] MEDS ORDERED: WELLBUTRIN XL150 MG PO (22:49)
[2018-10-15] MEDS ORDERED: AUGMENTIN 875875 MG PO (17:40)
[2018-10-15] MEDS ORDERED: VITAMIN D5000 UNI1 PO (17:40)
[2018-10-15] MEDS ORDERED: B12,B-12,B 12500 MC1 PO (17:40)
[2018-10-15] MEDS ORDERED: PAROXETINE HCL20 MG PO (17:40)
== END 2018-08-03 12:52 | disposition home or self-care (01) ==
LOC: ED 11:19
PROVIDERS: Emergency Medicine
DX: J45.901 Unspecified asthma with (acute) exacerbation (principal); L03.115 Cellulitis of right lower limb; M79.89 Other specified soft tissue disorders; I87.2 Venous insufficiency (chronic) (peripheral); I10 Essential (primary) hypertension; E66.01 Morbid (severe) obesity due to excess calories; Z91.048 Other nonmedicinal substance allergy status; Z79.899 Other long term (current) drug therapy; Z79.2 Long term (current) use of antibiotics

== ENCOUNTER → 2018-09-11 | Outpatient (CLI) | payer OTHER ==
[~2018-09-11] MED LIST changes: +ALDACTONE25 M1 PO; +AUGMENTIN 875875 MG PO; +B12,B-12,B 12500 MC1 PO; +BUMETANIDE1 MG PO; +Ipratropium Brom3 ML INH; +LISINOPRIL20 MG PO; +PAROXETINE HCL20 MG PO; +POLYSPORIN OINT15 GM T; +VITAMIN D5000 UNI1 PO; +WELLBUTRIN XL150 MG PO
== END ==
LOC: RESCLI 00:45
DX: L03.90 Cellulitis, unspecified (principal); J45.909 Unspecified asthma, uncomplicated; F33.1 Major depressive disorder, recurrent, moderate; I10 Essential (primary) hypertension; E66.01 Morbid (severe) obesity due to excess calories; Z79.899 Other long term (current) drug therapy

== ENCOUNTER → 2018-11-08 | Outpatient (CLI) | payer OTHER | END | disposition home or self-care (01) | LOC: RESCLI 02:04 | DX: J45.909 Unspecified asthma, uncomplicated (principal); I10 Essential (primary) hypertension; M54.6 Pain in thoracic spine; E66.01 Morbid (severe) obesity due to excess calories; M25.562 Pain in left knee; M79.605 Pain in left leg; F33.1 Major depressive disorder, recurrent, moderate; L03.115 Cellulitis of right lower limb; R60.9 Edema, unspecified; Z79.899 Other long term (current) drug therapy ==

== ENCOUNTER 2018-12-28 17:08 | Emergency (ER) | payer OTHER ==
[~2018-12-28] VITALS: Ht 167.6 cm; Wt 136.1 kg
[2018-12-28 17:08] VITALS: BP 150/66
== END 2018-12-28 18:15 | disposition home or self-care (01) ==
LOC: ED 17:08
DX: S33.5XXA Sprain of ligaments of lumbar spine, initial encounter (principal); S29.012A Strain of muscle and tendon of back wall of thorax, initial encounter; J45.909 Unspecified asthma, uncomplicated; I10 Essential (primary) hypertension; Z88.1 Allergy status to other antibiotic agents; Z91.018 Allergy to other foods; Z79.899 Other long term (current) drug therapy; Z79.2 Long term (current) use of antibiotics; V43.52XA Car driver injured in collision with other type car in traffic accident, initial encounter; Y93.I9 Activity, other involving external motion; Y92.488 Other paved roadways as the place of occurrence of the external cause; Y99.8 Other external cause status

== ENCOUNTER → 2019-01-17 | Outpatient (CLI) | payer OTHER | END | disposition home or self-care (01) | LOC: RESCLI 00:26 | DX: J45.909 Unspecified asthma, uncomplicated (principal); I10 Essential (primary) hypertension; M25.562 Pain in left knee; F33.0 Major depressive disorder, recurrent, mild; I89.0 Lymphedema, not elsewhere classified; G89.29 Other chronic pain; M25.552 Pain in left hip; E66.01 Morbid (severe) obesity due to excess calories; Z79.899 Other long term (current) drug therapy; Z87.891 Personal history of nicotine dependence; Z88.8 Allergy status to other drugs, medicaments and biological substances ==

== ENCOUNTER → 2019-02-17 | Outpatient (CLI) | payer OTHER | END | disposition home or self-care (01) | LOC: ORTHO 01:01 | DX: M16.12 Unilateral primary osteoarthritis, left hip (principal) ==

== ENCOUNTER 2019-03-08 00:18 | Inpatient (IN) | payer OTHER ==
[~2019-03-08] VITALS: Ht 165.1 cm; Wt 141.5 kg
[2019-03-08 00:21] VITALS: BP 151/57
[2019-03-08 01:04] LABS: BASO % 0.4 % (0.0-1.0); EOS # 0.6 10*3/uL (0.0-0.4); EOS % 6.5 % (1.0-4.0); HEMATOCRIT 34.7 % (37.0-47.0); HEMOGLOBIN 10.9 g/dl (12.0-16.0); LYMPH # 1.3 10*3/uL (1.3-4.4); LYMPH % 13.7 % (27.0-41.0); MEAN CELL VOLUME 92.3 fl (81.0-99.0); MEAN CORPUSCULAR HGB CONC 31.4 g/dl (33.0-37.0); MEAN PLATELET VOLUME 9.4 fl (9.6-12.3); MONO # 0.7 10*3/uL (0.1-1.0); MONO % 7.4 % (3.0-9.0); NEUT # 6.7 10*3/uL (2.3-7.9); NEUT % 71.4 % (47.0-73.0); PLATELET COUNT AUTOMATED 261 10*3/uL (130-400); RED BLOOD COUNT 3.76 10*6/uL (4.10-5.10); RED CELL DISTRI WIDTH 14.1 % (0-14.5); WHITE BLOOD COUNT 9.4 10*3/uL (4.8-10.8)
[2019-03-08 01:21] LABS: ALKALINE PHOSPHATASE 67 U/L (45-117); BUN 8 mg/dl (7-24); CHLORIDE 105 mmol/L (98-107); CREATININE 0.74 mg/dL (0.55-1.02); SGOT/AST 13 IU/L (3-35); SGPT/ALT 20 U/L (12-78); SODIUM 137 mmol/L (136-145)
[2019-03-08 02:45] VITALS: BP 137/58
--- NOTE | 2019-03-08 02:45 | NUR ---
Time: 244 A 43 year old F admitted to under services of GEOVANNY [place] DO. Pt. arrived via stretcher from ER. Chief complaint: PNEUMONIA. WIN MCKEON
--- NOTE | 2019-03-08 03:11 | NUR ---
PT. CHANGED FROM A MS PATIENT TO A TELEMETRY PATIENT.
--- NOTE | 2019-03-08 03:35 | NUR ---
PRN TYLENOL ADMINISTERED FOR PT C/O HEADACHE RATED A 10/10 ON THE PAIN SCALE. WILL CONTINUE TO MONITOR AND REASSESS. NO OTHER COMPLAINTS AT THIS TIME.
--- NOTE | 2019-03-08 03:58 | NUR ---
CALLED DR. ISLAS TO INFORM HIM THAT PT'S MED REC WAS UPDATED.
--- NOTE | 2019-03-08 04:08 | NUR ---
REFUSES EMIL LOPEZ.
--- NOTE | 2019-03-08 04:27 | NUR ---
PT STATES THAT THE TYLENOL HAS "EASED UP HER HEADACHE QUITE A BIT". WILL CONTINUE TO MONITOR.
--- NOTE | 2019-03-08 06:30 | NUR ---
RESTING IN BED WITH HOB ELEVATED & EYES CLOSED. RESPIRATIONS EASY & UNLABORED ON ROOM AIR. NO DISTRESS NOTED; CALL LIGHT WITHIN REACH.
[2019-03-08 08:00] VITALS: BP 121/56
[2019-03-08] MEDS ORDERED: FUROSEMIDE40 MG PO (08:02)
--- NOTE | 2019-03-08 08:10 | NUR ---
MED REC REVIEWED WITH PATIENT.
--- NOTE | 2019-03-08 08:17 | NUR ---
PT MEDICATED WITH PO NORCO PER PRN ORDER FOR C/O GENERALIZED PAIN/DISCOMFORT. WILL MONITOR EFFECTIVENESS. CALL LIGHT WITHIN REACH.
--- NOTE | 2019-03-08 09:30 | NUR ---
THUY EFFECTIVE PER PT.
--- NOTE | 2019-03-08 10:48 | NUR ---
IN TO SEE PATIENT.
[2019-03-08 12:00] VITALS: BP 127/57
[2019-03-08 16:00] VITALS: BP 123/53
[2019-03-08 20:00] VITALS: BP 141/51
--- NOTE | 2019-03-08 20:00 | NUR ---
AAOX3 SITTING UP IN BED. VOICES NO C/O AT THIS TIME. CALL LIGHT WITHIN REACH.
--- NOTE | 2019-03-08 22:00 | NUR ---
AWAKE & ALERT RESTING IN BED WITH HOB SLIGHTLY ELEVATED. PT. VOICES NO C/O AT THIS TIME. NO DISTRESS NOTED. CALL LIGHT WITHIN REACH.
[2019-03-09] VITALS: BP 121/46
--- NOTE | 2019-03-09 06:00 | NUR ---
RESTING IN BED WITH EYES CLOSED. RESPIRATIONS EASY & UNLABORED ON ROOM AIR. CALL LIGHT WITHIN REACH.
[2019-03-09 06:30] LABS: BASO % 0.1 % (0.0-1.0); HEMATOCRIT 34.7 % (37.0-47.0); HEMOGLOBIN 10.6 g/dl (12.0-16.0); LYMPH # 1.2 10*3/uL (1.3-4.4); LYMPH % 6.7 % (27.0-41.0); MEAN CELL VOLUME 90.8 fl (81.0-99.0); MEAN CORPUSCULAR HGB 27.7 pg (27.0-31.0); MEAN CORPUSCULAR HGB CONC 30.5 g/dl (33.0-37.0); MEAN PLATELET VOLUME 9.7 fl (9.6-12.3); MONO # 0.8 10*3/uL (0.1-1.0); MONO % 4.5 % (3.0-9.0); NEUT # 14.9 10*3/uL (2.3-7.9); NEUT % 87.3 % (47.0-73.0); PLATELET COUNT AUTOMATED 322 10*3/uL (130-400); RED BLOOD COUNT 3.82 10*6/uL (4.10-5.10); RED CELL DISTRI WIDTH 13.8 % (0-14.5); WHITE BLOOD COUNT 17.1 10*3/uL (4.8-10.8)
[2019-03-09 06:59] LABS: ALBUMIN 2.8 gm/dl (3.1-4.5); BUN 13 mg/dl (7-24); CHLORIDE 109 mmol/L (98-107); CREATININE 0.57 mg/dL (0.55-1.02); POTASSIUM 4.7 mmol/L (3.5-5.1); SGOT/AST 13 IU/L (3-35); SGPT/ALT 21 U/L (12-78); SODIUM 141 mmol/L (136-145)
[2019-03-09 07:01] LABS: ALKALINE PHOSPHATASE 58 U/L (45-117); TOTAL PROTEIN 6.9 gm/dL (6.4-8.2)
[2019-03-09 08:00] VITALS: BP 127/50
[2019-03-09 12:00] VITALS: BP 128/63
[2019-03-09 16:00] VITALS: BP 141/59
[2019-03-09 20:00] VITALS: BP 130/72
[2019-03-10] VITALS: BP 138/62
--- NOTE | 2019-03-10 02:17 | NUR ---
24 HR chart check completed.
[2019-03-10 05:59] LABS: HEMATOCRIT 35.3 % (37.0-47.0); HEMOGLOBIN 10.8 g/dl (12.0-16.0); MEAN CORPUSCULAR HGB 27.8 pg (27.0-31.0); MEAN CORPUSCULAR HGB CONC 30.6 g/dl (33.0-37.0); MEAN PLATELET VOLUME 9.5 fl (9.6-12.3); PLATELET COUNT AUTOMATED 355 10*3/uL (130-400); RED BLOOD COUNT 3.88 10*6/uL (4.10-5.10); RED CELL DISTRI WIDTH 13.9 % (0-14.5); WHITE BLOOD COUNT 17.1 10*3/uL (4.8-10.8)
[2019-03-10 07:06] LABS: TOTAL CELLS COUNTED 100 #CELLS
[2019-03-10 07:08] LABS: PLATELET SUFFICIENCY NORMAL (NORMAL)
[2019-03-10 08:00] VITALS: BP 149/76
--- NOTE | 2019-03-10 08:37 | NUR ---
SPOKE WITH YAYA CHACKO, INFECTIOUS DISEASE RN. PT DOES NOT HAVE ANY OPEN WOUNDS AT THIS TIME. PT CAN COME OUT OF ISOLATION PER YAYA CHACKO. CONTINUE TO MONITOR THE PT.
--- NOTE | 2019-03-10 09:00 | NUR ---
Smart Grid Engineer in to talk to patient. Patient states lives at home with alone. There are few steps in the home. Physician: resident clinic Pharmacy: [facility] health services: none Patient's level of ADLs: INDEPENDENT Patient has working utilities: all working DME: [facility] Follow-up physician's appointment after d/c: will be made by hospitalist nurse director upon discharge Does patient want to access PORTAL?: no Discharge plan discussed with patient, she lives at home alone, states she is independent in adls and ambulation, she states she will return home when medically stable and denies any home needs. WENDY CANCINO
[2019-03-10 12:00] VITALS: BP 127/82
[2019-03-10 16:00] VITALS: BP 127/55
--- NOTE | 2019-03-10 17:40 | NUR ---
Patient resting quietly with no c/o discomfort. Respirations easy and regular. Vital signs stable. No overt distress. CALL LIGHT WITHIN REACH HISSOM,FREDERICK
[2019-03-10 20:00] VITALS: BP 115/51
[2019-03-11] VITALS: BP 133/53
--- NOTE | 2019-03-11 02:32 | NUR ---
PATIENT RESTING IN BED WITH EYES CLOSED. AROUSES TO VERBAL STIMULI. DENIES COMPLAINTS OF PAIN OR DISCOMFORT. RESPIRATIONS REGULAR AND NON-LABORED. AMBULATES TO BATHROOM PER SELF. WILL CONTINUE TO MONITOR. CALL LIGHT IN REACH.
[2019-03-11 07:42] LABS: BUN 16 mg/dl (7-24); CHLORIDE 108 mmol/L (98-107); CREATININE 0.71 mg/dL (0.55-1.02); SODIUM 140 mmol/L (136-145)
[2019-03-11 08:00] VITALS: BP 137/66
[2019-03-11 08:41] LABS: HEMATOCRIT 38.6 % (37.0-47.0); HEMOGLOBIN 11.6 g/dl (12.0-16.0); MEAN CELL VOLUME 90.8 fl (81.0-99.0); MEAN CORPUSCULAR HGB 27.3 pg (27.0-31.0); MEAN CORPUSCULAR HGB CONC 30.1 g/dl (33.0-37.0); MEAN PLATELET VOLUME 9.3 fl (9.6-12.3); PLATELET COUNT AUTOMATED 366 10*3/uL (130-400); RED BLOOD COUNT 4.25 10*6/uL (4.10-5.10); RED CELL DISTRI WIDTH 13.9 % (0-14.5)
--- NOTE | 2019-03-11 09:00 | NUR ---
case management visits with patient, she states she will be staying with her cousin when discharged, she has a Dr Ocampo consult and will need a few more days for treatment, case managment will follow
[2019-03-11 09:29] LABS: PLATELET SUFFICIENCY NORMAL (NORMAL); TOTAL CELLS COUNTED 100 #CELLS
--- NOTE | 2019-03-11 11:01 | NUR ---
24 HR chart check completed.
[2019-03-11 12:00] VITALS: BP 135/62
[2019-03-11 16:00] VITALS: BP 134/62
[2019-03-11 20:00] VITALS: BP 130/64
[2019-03-12] VITALS: BP 134/62
[2019-03-12 08:00] VITALS: BP 131/75
--- NOTE | 2019-03-12 08:10 | NUR ---
PATIENT SITTING UP IN BED. NO DISTRESS NOTED. RESPIRATIONS EASY, REGULAR AT REST. PT STATES SHE IS FEELING BETTER. LUNGS DIMINISHED WITH I/E WHEEZES. WILL CONTINUE TO MONITOR. CALL LIGHT WITHIN REACH. VSS
[2019-03-12 09:16] LABS: HEMATOCRIT 39.9 % (37.0-47.0); HEMOGLOBIN 12.2 g/dl (12.0-16.0); MEAN CELL VOLUME 92.6 fl (81.0-99.0); MEAN CORPUSCULAR HGB 28.3 pg (27.0-31.0); MEAN CORPUSCULAR HGB CONC 30.6 g/dl (33.0-37.0); MEAN PLATELET VOLUME 9.3 fl (9.6-12.3); NUCLEATED RED BLOOD CELL 0.2 % (0.0-0.0); PLATELET COUNT AUTOMATED 405 10*3/uL (130-400); RED BLOOD COUNT 4.31 10*6/uL (4.10-5.10); RED CELL DISTRI WIDTH 14.1 % (0-14.5); WHITE BLOOD COUNT 17.5 10*3/uL (4.8-10.8)
[2019-03-12 09:28] LABS: BUN 19 mg/dl (7-24); CHLORIDE 107 mmol/L (98-107); CREATININE 0.81 mg/dL (0.55-1.02)
[2019-03-12 09:31] LABS: SODIUM 138 mmol/L (136-145)
[2019-03-12 09:43] LABS: PLATELET SUFFICIENCY HIGH (NORMAL); POLYCHROMASIA SLIGHT; TOTAL CELLS COUNTED 100 #CELLS
--- NOTE | 2019-03-12 10:32 | NUR ---
Nutritional Support Services Note: Dx of bilateral pneumonia, hx of asthma and HTN. Appetite is good for meals, eating 100%. Regular diet as ordered with Ensure po TID. Moderate protein calorie malnutrition noted- albumin 2.8. No other nutrition intervention needed at this time. Will follow as needed. Muriel Hidalgo Rdn Ld
[2019-03-12 12:00] VITALS: BP 131/57
[2019-03-12] MEDS ORDERED: DOXYCYCLINE100 M3 PO (14:30)
[2019-03-12] MEDS ORDERED: PREDNISONE10 MG PO (14:30)
--- NOTE | 2019-03-12 14:37 | NUR ---
Discharge instructions reviewed with patient/family. Patient receptive and verbalizes understanding. Follow-up care arranged. Written instructions given to patient/family. VANESSA NICOLE.
== END 2019-03-12 14:37 | disposition home or self-care (01) | DRG 720 ==
LOC: ED 00:18 → 5E 01:56 → EDHOLD 01:56 → 5E 02:16
PROVIDERS: Emergency Medicine Emergency Medical Services; Internal Medicine; ADMIT Internal Medicine
DX: A41.9 Sepsis, unspecified organism (principal); E44.0 Moderate protein-calorie malnutrition; J18.9 Pneumonia, unspecified organism; E66.01 Morbid (severe) obesity due to excess calories; Z68.43 Body mass index [BMI] 50.0-59.9, adult; J45.909 Unspecified asthma, uncomplicated; M1A.9XX0 Chronic gout, unspecified, without tophus (tophi); I10 Essential (primary) hypertension; I89.0 Lymphedema, not elsewhere classified; I87.2 Venous insufficiency (chronic) (peripheral); D50.9 Iron deficiency anemia, unspecified; Z88.1 Allergy status to other antibiotic agents; Z91.09 Other allergy status, other than to drugs and biological substances; Z87.440 Personal history of urinary (tract) infections; Z82.3 Family history of stroke; Z81.8 Family history of other mental and behavioral disorders; Z82.49 Family history of ischemic heart disease and other diseases of the circulatory system; Z80.3 Family history of malignant neoplasm of breast; Z84.89 Family history of other specified conditions; Z79.899 Other long term (current) drug therapy

== ENCOUNTER → 2019-04-04 | Outpatient (CLI) | payer OTHER ==
[~2019-04-04] MED LIST changes: +FUROSEMIDE40 MG PO
== END | disposition home or self-care (01) ==
LOC: RESCLI 00:39
DX: J45.909 Unspecified asthma, uncomplicated (principal); I10 Essential (primary) hypertension; M79.605 Pain in left leg; E66.01 Morbid (severe) obesity due to excess calories; F33.1 Major depressive disorder, recurrent, moderate; I89.0 Lymphedema, not elsewhere classified; M16.12 Unilateral primary osteoarthritis, left hip; Z79.899 Other long term (current) drug therapy; Z87.891 Personal history of nicotine dependence

== ENCOUNTER → 2019-05-08 | Outpatient (CLI) | payer OTHER | END | disposition home or self-care (01) | LOC: RESCLI 00:51 | DX: F33.1 Major depressive disorder, recurrent, moderate (principal); J45.909 Unspecified asthma, uncomplicated; I10 Essential (primary) hypertension; M79.605 Pain in left leg; E66.01 Morbid (severe) obesity due to excess calories; I89.0 Lymphedema, not elsewhere classified; M16.12 Unilateral primary osteoarthritis, left hip; Z79.899 Other long term (current) drug therapy; Z87.891 Personal history of nicotine dependence ==

== ENCOUNTER → 2019-11-13 | Outpatient (CLI) | payer OTHER | END | disposition home or self-care (01) | LOC: RESCLI 04:54 | DX: J45.909 Unspecified asthma, uncomplicated (principal); I10 Essential (primary) hypertension; I89.0 Lymphedema, not elsewhere classified; M19.90 Unspecified osteoarthritis, unspecified site; M16.12 Unilateral primary osteoarthritis, left hip; F33.1 Major depressive disorder, recurrent, moderate; Z79.899 Other long term (current) drug therapy ==

== ENCOUNTER → 2019-11-28 | Outpatient (CLI) | payer OTHER | END | disposition home or self-care (01) | LOC: RESCLI 13:19 | DX: L30.4 Erythema intertrigo (principal); F33.1 Major depressive disorder, recurrent, moderate; M25.552 Pain in left hip; J45.909 Unspecified asthma, uncomplicated ==

== ENCOUNTER → 2020-01-22 | Outpatient (CLI) | payer OTHER | END | disposition home or self-care (01) | LOC: RESCLI 02:00 | PROVIDERS: ATTEND Internal Medicine | DX: F33.1 Major depressive disorder, recurrent, moderate (principal); K04.7 Periapical abscess without sinus; M16.12 Unilateral primary osteoarthritis, left hip ==

== ENCOUNTER → 2020-03-09 | Outpatient (CLI) | payer OTHER | END | disposition home or self-care (01) | LOC: RESCLI 04:27 | PROVIDERS: ATTEND Social Worker Clinical | DX: F33.1 Major depressive disorder, recurrent, moderate (principal); M25.552 Pain in left hip; J45.909 Unspecified asthma, uncomplicated; J45.51 Severe persistent asthma with (acute) exacerbation; G89.29 Other chronic pain; M25.561 Pain in right knee; M25.562 Pain in left knee; Z79.899 Other long term (current) drug therapy; Z12.31 Encounter for screening mammogram for malignant neoplasm of breast; Z28.21 Immunization not carried out because of patient refusal; Z87.891 Personal history of nicotine dependence ==

== ENCOUNTER → 2020-05-19 | Outpatient (CLI) | payer OTHER | END | disposition home or self-care (01) | LOC: RESCLI 00:38 | PROVIDERS: ATTEND Internal Medicine Nephrology | DX: J45.51 Severe persistent asthma with (acute) exacerbation (principal); Z01.89 Encounter for other specified special examinations; F33.1 Major depressive disorder, recurrent, moderate; M25.561 Pain in right knee; M25.562 Pain in left knee; Z79.899 Other long term (current) drug therapy ==

== ENCOUNTER → 2020-06-24 | Outpatient (CLI) | payer OTHER | END | disposition home or self-care (01) | LOC: RESCLI 02:03 | PROVIDERS: ATTEND Internal Medicine | DX: F33.1 Major depressive disorder, recurrent, moderate (principal); J45.51 Severe persistent asthma with (acute) exacerbation; M19.90 Unspecified osteoarthritis, unspecified site; M25.561 Pain in right knee; M25.562 Pain in left knee; Z79.899 Other long term (current) drug therapy; Z87.891 Personal history of nicotine dependence; Z98.890 Other specified postprocedural states; Z00.00 Encounter for general adult medical examination without abnormal findings ==

== ENCOUNTER → 2020-06-28 | Outpatient (CLI) | payer OTHER ==
[2020-06-28 10:27] LABS: BASO # 0.1 10*3/uL (0.0-0.1); BASO % 0.7 % (0.0-1.0); EOS # 0.3 10*3/uL (0.0-0.4); EOS % 3.3 % (1.0-4.0); LYMPH # 3.3 10*3/uL (1.3-4.4); LYMPH % 31.9 % (27.0-41.0); MEAN CELL VOLUME 93.4 fl (81.0-99.0); MEAN CORPUSCULAR HGB 28.2 pg (27.0-31.0); MEAN CORPUSCULAR HGB CONC 30.2 g/dl (33.0-37.0); MEAN PLATELET VOLUME 9.5 fl (9.6-12.3); MONO # 0.8 10*3/uL (0.1-1.0); MONO % 7.4 % (3.0-9.0); NEUT # 5.7 10*3/uL (2.3-7.9); NEUT % 55.5 % (47.0-73.0); PLATELET COUNT AUTOMATED 300 10*3/uL (130-400); RED BLOOD COUNT 4.39 10*6/uL (4.10-5.10); WHITE BLOOD COUNT 10.2 10*3/uL (4.8-10.8)
[2020-06-28 10:40] LABS: ALBUMIN 3.6 gm/dl (3.1-4.5); ALKALINE PHOSPHATASE 50 U/L (45-117); BUN 15 mg/dl (7-24); CHLORIDE 108 mmol/L (98-107); CHOLESTEROL 242 mg/dL (<200); CREATININE 0.72 mg/dL (0.55-1.02); HDL CHOLESTEROL 49 mg/dl (40-60); LDL CHOLESTEROL 159 mg/dL (9-159); POTASSIUM 3.8 mmol/L (3.5-5.1); SGOT/AST 6 IU/L (3-35); SGPT/ALT 16 U/L (12-78); SODIUM 142 mmol/L (136-145); TOTAL PROTEIN 7.2 gm/dL (6.4-8.2); TRIGLYCERIDES 172 mg/dl (<150); VLDL CHOLESTEROL 34 mg/dL (6-40)
== END | disposition home or self-care (01) ==
LOC: LAB 09:19
PROVIDERS: Internal Medicine; ATTEND Internal Medicine Nephrology
DX: Z00.00 Encounter for general adult medical examination without abnormal findings (principal)

== ENCOUNTER → 2020-10-06 | Outpatient (CLI) | payer MEDICARE, MEDICAID | END | disposition home or self-care (01) | LOC: RESCLI 13:35 | PROVIDERS: ATTEND Internal Medicine Nephrology | DX: M16.0 Bilateral primary osteoarthritis of hip (principal); M25.552 Pain in left hip; M25.551 Pain in right hip; G89.29 Other chronic pain; J45.909 Unspecified asthma, uncomplicated; E66.01 Morbid (severe) obesity due to excess calories; F33.1 Major depressive disorder, recurrent, moderate; I10 Essential (primary) hypertension; Z79.899 Other long term (current) drug therapy; Z72.89 Other problems related to lifestyle ==

== ENCOUNTER → 2020-12-29 | Outpatient (CLI) | payer MEDICARE, MEDICAID | END | disposition home or self-care (01) | LOC: RESCLI 02:31 | PROVIDERS: ATTEND Student in an Organized Health Care Education/Training Program | DX: E66.01 Morbid (severe) obesity due to excess calories (principal); J45.41 Moderate persistent asthma with (acute) exacerbation; I10 Essential (primary) hypertension; M19.90 Unspecified osteoarthritis, unspecified site; Z79.899 Other long term (current) drug therapy; Z98.890 Other specified postprocedural states ==

== ENCOUNTER → 2021-11-18 | Outpatient (CLI) | payer MEDICARE, MEDICAID ==
[2021-11-18 12:36] LABS: BASO # 0.1 10*3/uL (0.0-0.1); BASO % 0.7 % (0.0-1.0); EOS # 0.5 10*3/uL (0.0-0.4); EOS % 7.9 % (1.0-4.0); HEMATOCRIT 42.6 % (37.0-47.0); LYMPH # 1.1 10*3/uL (1.3-4.4); MEAN CELL VOLUME 91.2 fl (81.0-99.0); MEAN CORPUSCULAR HGB 28.3 pg (27.0-31.0); MEAN PLATELET VOLUME 9.5 fl (9.6-12.3); MONO # 0.4 10*3/uL (0.1-1.0); MONO % 5.6 % (3.0-9.0); NEUT # 4.7 10*3/uL (2.3-7.9); NEUT % 69.5 % (47.0-73.0); PLATELET COUNT AUTOMATED 252 10*3/uL (130-400); RED BLOOD COUNT 4.67 10*6/uL (4.10-5.10); RED CELL DISTRI WIDTH 13.9 % (0-14.5); WHITE BLOOD COUNT 6.8 10*3/uL (4.8-10.8)
== END | disposition home or self-care (01) ==
LOC: LAB 12:10
PROVIDERS: ATTEND Student in an Organized Health Care Education/Training Program
DX: E55.9 Vitamin D deficiency, unspecified (principal); R73.9 Hyperglycemia, unspecified; R53.83 Other fatigue

== ENCOUNTER 2022-08-15 22:08 | Emergency (ER) | payer MEDICARE, MEDICAID ==
[~2022-08-15] VITALS: Ht 165.1 cm; Wt 127.0 kg
[2022-08-15 22:15] VITALS: BP 147/71
[2022-08-15] MEDS ORDERED: PREDNISONE50 MG PO (23:39)
[2022-08-15] MEDS ORDERED: PERCOCET 5-3251 EACH PO (23:39)
[2022-08-15] MEDS ORDERED: NAPROSYN500 MG PO (23:39)
== END 2022-08-15 23:56 | disposition home or self-care (01) ==
LOC: ED 22:08
DX: M25.552 Pain in left hip (principal); Z88.1 Allergy status to other antibiotic agents; Z79.899 Other long term (current) drug therapy

== ENCOUNTER 2022-10-09 23:54 | Emergency (ER) | payer OTHER ==
[~2022-10-09] VITALS: Ht 165.1 cm; Wt 137.0 kg
[~2022-10-09 23:54] MED LIST changes: +PERCOCET 5-3251 EACH PO
[2022-10-09] MEDS ORDERED: LEXAPRO20 MG PO (23:57)
[2022-10-09 23:58] VITALS: BP 118/64
== END 2022-10-10 02:18 | disposition home or self-care (01) ==
LOC: ED 23:54
DX: S46.912A Strain of unspecified muscle, fascia and tendon at shoulder and upper arm level, left arm, initial encounter (principal); M10.9 Gout, unspecified; I10 Essential (primary) hypertension; D64.9 Anemia, unspecified; Z98.890 Other specified postprocedural states; F32.A Depression, unspecified; Z87.442 Personal history of urinary calculi; J45.909 Unspecified asthma, uncomplicated; Z88.1 Allergy status to other antibiotic agents; Z88.8 Allergy status to other drugs, medicaments and biological substances; X58.XXXA Exposure to other specified factors, initial encounter; Y93.89 Activity, other specified; Y92.89 Other specified places as the place of occurrence of the external cause; Y99.8 Other external cause status

== ENCOUNTER → 2022-11-16 | Outpatient (CLI) | payer OTHER ==
[~2022-11-16] MED LIST changes: +LEXAPRO20 MG PO
[2022-11-16 09:24] LABS: BUN 8 mg/dl (9-23); CHLORIDE 106 mmol/L (98-107); POTASSIUM 3.8 mmol/L (3.4-5.1)
== END | disposition home or self-care (01) ==
LOC: LAB 08:17
PROVIDERS: ATTEND Internal Medicine Cardiovascular Disease
DX: I42.0 Dilated cardiomyopathy (principal); I10 Essential (primary) hypertension

== ENCOUNTER 2023-04-10 02:00 | Emergency (ER) | payer OTHER ==
[~2023-04-10] VITALS: Ht 170.1 cm; Wt 132.4 kg
[2023-04-10 02:06] VITALS: BP 155/40
[2023-04-10 02:26] LABS: BASO % 0.5 % (0.0-1.0); EOS # 0.2 10*3/uL (0.0-0.4); EOS % 3.3 % (1.0-4.0); LYMPH % 15.9 % (27.0-41.0); MEAN CELL VOLUME 94.8 fl (81.0-99.0); MEAN CORPUSCULAR HGB 29.4 pg (27.0-31.0); MEAN PLATELET VOLUME 9.7 fl (9.6-12.3); MONO # 0.6 10*3/uL (0.1-1.0); MONO % 9.5 % (3.0-9.0); NEUT # 4.3 10*3/uL (2.3-7.9); NEUT % 70.5 % (47.0-73.0); PLATELET COUNT AUTOMATED 185 10*3/uL (130-400); RED BLOOD COUNT 4.22 10*6/uL (4.10-5.10); RED CELL DISTRI WIDTH 13.2 % (0-14.5); WHITE BLOOD COUNT 6.1 10*3/uL (4.8-10.8)
[2023-04-10 02:42] LABS: ALKALINE PHOSPHATASE 62 U/L (46-116); BUN 12 mg/dl (9-23); CHLORIDE 106 mmol/L (98-107); POTASSIUM 3.7 mmol/L (3.4-5.1); SGPT/ALT < 7 U/L (5-49); TOTAL PROTEIN 6.7 gm/dL (6.0-8.0)
[2023-04-10] MEDS ORDERED: PREDNISONE20 M1 PO (05:09)
[2023-04-10] MEDS ORDERED: ZITHROMAX250 MG PO (05:09)
== END 2023-04-10 05:18 | disposition home or self-care (01) ==
LOC: ED 02:00
PROVIDERS: Internal Medicine
DX: B34.9 Viral infection, unspecified (principal); I51.7 Cardiomegaly; I10 Essential (primary) hypertension; F32.A Depression, unspecified; J45.909 Unspecified asthma, uncomplicated; M10.9 Gout, unspecified; Z87.442 Personal history of urinary calculi; Z88.1 Allergy status to other antibiotic agents; Z88.8 Allergy status to other drugs, medicaments and biological substances; Z98.890 Other specified postprocedural states; Z20.822 Contact with and (suspected) exposure to COVID-19

== ENCOUNTER → 2023-05-23 | Outpatient (CLI) | payer OTHER ==
[~2023-05-23] MED LIST changes: +ASPIRIN ADULT L81 M2 PO; +LIPITOR10 MG PO; +MELOXICAM7.5 MG PO; +SYMB160 INH; +VITAMIN D350 MC2 PO; +XARELTO2.5 MG PO; +ZESTRIL10 MG PO
[2023-05-23 12:00] LABS: ACT PARTIAL THROMBO TIME 31.1 SECONDS (20.0-32.1)
[2023-05-24 12:08] LABS: ANTI-DSDNA ANTIBODIES <1 IU/mL (0-9)
[2023-05-25 02:07] LABS: DVVTMIXRFX CHG (NP); LUPUS DRVVT 59.9 sec (0.0-47.0); PTT-LA 40.8 sec (0.0-43.5)
[2023-05-26 10:08] LABS: LUPUS REFLEX INTERPRETATION Comment: (.)
== END | disposition home or self-care (01) ==
LOC: LAB 00:52
PROVIDERS: ATTEND Internal Medicine Cardiovascular Disease
DX: I33.0 Acute and subacute infective endocarditis (principal); Z79.01 Long term (current) use of anticoagulants

== ENCOUNTER → 2023-06-20 | Outpatient (CLI) | payer OTHER ==
[2023-06-20 17:00] LABS: ALKALINE PHOSPHATASE 72 U/L (46-116); BUN 10 mg/dl (9-23); CHLORIDE 106 mmol/L (98-107); POTASSIUM 3.6 mmol/L (3.4-5.1); SGPT/ALT 7 U/L (5-49); TOTAL PROTEIN 7.1 gm/dL (6.0-8.0)
[2023-06-20 17:24] LABS: BASO # 0.1 10*3/uL (0.0-0.1); BASO % 0.7 % (0.0-1.0); EOS # 0.7 10*3/uL (0.0-0.4); EOS % 8.3 % (1.0-4.0); LYMPH # 1.3 10*3/uL (1.3-4.4); LYMPH % 15.3 % (27.0-41.0); MEAN CELL VOLUME 92.7 fl (81.0-99.0); MEAN CORPUSCULAR HGB 28.3 pg (27.0-31.0); MEAN CORPUSCULAR HGB CONC 30.5 g/dl (33.0-37.0); MONO # 0.4 10*3/uL (0.1-1.0); MONO % 4.6 % (3.0-9.0); NEUT # 5.8 10*3/uL (2.3-7.9); NEUT % 70.7 % (47.0-73.0); PLATELET COUNT AUTOMATED 239 10*3/uL (130-400); RED BLOOD COUNT 4.53 10*6/uL (4.10-5.10); RED CELL DISTRI WIDTH 13.8 % (0-14.5); WHITE BLOOD COUNT 8.2 10*3/uL (4.8-10.8)
[2023-06-21 05:07] LABS: RBC 4.44 x10E6/uL (3.77-5.28)
[2023-06-22 12:08] LABS: ACTIVATED PROTEIN C 2.8 ratio (2.2-3.5)
[2023-06-22 17:07] LABS: G-6-PD, QUANT 330 (127-427)
[2023-06-26 13:06] LABS: B. HENSELAE IGG Negative titer (Neg:<1:320); B. HENSELAE IGM Negative titer (Neg:<1:100); B. QUINTANA IGG Negative titer (Neg:<1:320); B. QUINTANA IGM Negative titer (Neg:<1:100)
== END | disposition home or self-care (01) ==
LOC: LAB 03:29
PROVIDERS: ATTEND Internal Medicine Rheumatology
DX: I42.0 Dilated cardiomyopathy (principal); I38 Endocarditis, valve unspecified; I99.8 Other disorder of circulatory system; I10 Essential (primary) hypertension; E78.2 Mixed hyperlipidemia; M32.9 Systemic lupus erythematosus, unspecified; E66.01 Morbid (severe) obesity due to excess calories; Z79.899 Other long term (current) drug therapy

== ENCOUNTER 2023-08-22 23:30 | Inpatient (IN) | payer OTHER ==
[~2023-08-22] VITALS: Ht 165.1 cm; Wt 132.4 kg
[2023-08-22 23:34] VITALS: BP 138/65
[2023-08-23] VITALS (8 sets, daily range): BP systolic 122–165; BP diastolic 46–77
[2023-08-23] MEDS ORDERED: Ondansetron Hydrochloride 4 MG/2 ML VIAL IV ONE (01:05)
[2023-08-23] MEDS ORDERED: MORPHINE Sulfate 2 MG/ML SYR IV ONE (01:05)
[2023-08-23 01:31] LABS: HEMATOCRIT 44.9 % (37.0-47.0); MEAN CELL VOLUME 93.3 fl (81.0-99.0); MEAN CORPUSCULAR HGB 27.9 pg (27.0-31.0); MEAN CORPUSCULAR HGB CONC 29.8 g/dl (33.0-37.0); MEAN PLATELET VOLUME 9.2 fl (9.6-12.3); PLATELET COUNT AUTOMATED 269 10*3/uL (130-400); RED BLOOD COUNT 4.81 10*6/uL (4.10-5.10); RED CELL DISTRI WIDTH 15.3 % (0-14.5); WHITE BLOOD COUNT 17.8 10*3/uL (4.8-10.8)
[2023-08-23 01:34] LABS: MANUAL DIFF REFLEX YES
[2023-08-23 01:48] LABS: ALKALINE PHOSPHATASE 62 U/L (46-116); BUN 14 mg/dl (9-23); CHLORIDE 104 mmol/L (98-107); POTASSIUM 3.9 mmol/L (3.4-5.1); SGPT/ALT 19 U/L (5-49); TOTAL PROTEIN 6.6 gm/dL (6.0-8.0)
[2023-08-23 01:51] LABS: PLATELET SUFFICIENCY NORMAL (NORMAL); TOTAL CELLS COUNTED 100 #CELLS
[2023-08-23] MEDS ORDERED: PREDNISONE20 M1 PO (03:24)
[2023-08-23] MEDS ORDERED: BISACODYL 5 MG TAB PO PRN (04:20)
[2023-08-23] MEDS ORDERED: Acetaminophen/Hydrocodone 5 MG/325 MG TABLET PO PRN (04:20)
[2023-08-23] MEDS ORDERED: BISACODYL 10 MG SUPP R PRN (04:20)
[2023-08-23] MEDS ORDERED: Magnesium Hydroxide 30 ML UDC PO PRN (04:20)
[2023-08-23] MEDS ORDERED: ACETAMINOPHEN 650 MG SUPP R PRN (04:20)
[2023-08-23] MEDS ORDERED: ACETAMINOPHEN 325 MG TAB PO PRN (04:20)
[2023-08-23] MEDS ORDERED: MORPHINE Sulfate 2 MG/ML SYR IV PRN (04:20)
[2023-08-23] MEDS ORDERED: HYDROmorphONE Hydrochloride 0.5 MG/0.5 ML SYRINGE IV PRN (04:25)
[2023-08-23 05:17] LABS: BUN 12 mg/dl (9-23); CHLORIDE 103 mmol/L (98-107); CHOLESTEROL 191 mg/dL (<200); FREE T4 1.09 ng/dl (0.89-1.76); LDL CHOLESTEROL 111 mg/dL (9-159); POTASSIUM 4.6 mmol/L (3.4-5.1); TRIGLYCERIDES 101 mg/dl (<150)
[2023-08-23 06:29] LABS: HEMATOCRIT 42.9 % (37.0-47.0); MEAN CELL VOLUME 93.1 fl (81.0-99.0); MEAN CORPUSCULAR HGB CONC 30.1 g/dl (33.0-37.0); MEAN PLATELET VOLUME 9.6 fl (9.6-12.3); PLATELET COUNT AUTOMATED 273 10*3/uL (130-400); RED BLOOD COUNT 4.61 10*6/uL (4.10-5.10); RED CELL DISTRI WIDTH 15.3 % (0-14.5); WHITE BLOOD COUNT 20.7 10*3/uL (4.8-10.8)
[2023-08-23 06:32] LABS: MANUAL DIFF REFLEX YES
[2023-08-23 07:09] LABS: VITAMIN D, 25-HYDROXY 30.9 ng/mL (30-100)
[2023-08-23 07:10] LABS: BURR CELLS MODERATE; OVALOCYTES FEW; PLATELET SUFFICIENCY NORMAL (NORMAL); POLYCHROMASIA SLIGHT; TOTAL CELLS COUNTED 100 #CELLS
[2023-08-23] MEDS ORDERED: LISINOPRIL 10 MG TAB PO SCH (12:35)
[2023-08-23] MEDS ORDERED: ESCITALOPRAM OXALATE 20 MG TAB PO SCH (12:35)
[2023-08-23] MEDS ORDERED: predniSONE 20 MG TAB PO ONE (14:20)
[2023-08-24] VITALS (10 sets, daily range): BP systolic 113–165; BP diastolic 55–75
[2023-08-24 06:21] LABS: BASO % 0.1 % (0.0-1.0); HEMATOCRIT 45.2 % (37.0-47.0); LYMPH # 1.5 10*3/uL (1.3-4.4); LYMPH % 9.7 % (27.0-41.0); MEAN CELL VOLUME 92.1 fl (81.0-99.0); MEAN CORPUSCULAR HGB 28.1 pg (27.0-31.0); MEAN CORPUSCULAR HGB CONC 30.5 g/dl (33.0-37.0); MEAN PLATELET VOLUME 9.8 fl (9.6-12.3); MONO # 1.1 10*3/uL (0.1-1.0); MONO % 7.4 % (3.0-9.0); NEUT # 12.4 10*3/uL (2.3-7.9); NEUT % 81.7 % (47.0-73.0); PLATELET COUNT AUTOMATED 272 10*3/uL (130-400); RED BLOOD COUNT 4.91 10*6/uL (4.10-5.10); RED CELL DISTRI WIDTH 15.5 % (0-14.5); WHITE BLOOD COUNT 15.2 10*3/uL (4.8-10.8)
[2023-08-24 06:49] LABS: BUN 9 mg/dl (9-23); CHLORIDE 99 mmol/L (98-107); POTASSIUM 4.8 mmol/L (3.4-5.1)
[2023-08-24] MEDS ORDERED: predniSONE 20 MG TAB PO SCH (10:00)
[2023-08-24] MEDS ORDERED: Ropivacaine Hydrochloride 5 MG/ML 20 ML AMP IJ ONE (13:06)
[2023-08-24] MEDS ORDERED: Midazolam Hydrochloride 2 MG/2 ML VIAL ONE ×2 (13:06→14:38)
[2023-08-24] MEDS ORDERED: TRANEXAMIC ACID IN NACL,ISO-OS 100 ML IV ONE ×2 (14:03→15:00)
[2023-08-24] MEDS ORDERED: ceFAZolin sodium/sodium chlor 0 ML IV ONE (14:04)
[2023-08-24] MEDS ORDERED: SODIUM CHLORIDE 0.9% 1,000 ML IV ONE ×3 (14:35→15:13)
[2023-08-24] MEDS ORDERED: ceFAZolin sodium/sodium chlor 30 ML IV ONE ×2 (14:48→15:00)
[2023-08-24] MEDS ORDERED: Midazolam Hydrochloride 2 MG/2 ML VIAL IV ONE (17:25)
[2023-08-24] MEDS ORDERED: PROPOFOL 200 MG/20 ML VIAL IV ONE (17:25)
[2023-08-24] MEDS ORDERED: GLYCOPYRROLATE 0.4 MG/2 ML VIAL IV ONE (17:25)
[2023-08-24] MEDS ORDERED: Ketamine Hydrochloride 500 MG/10 ML VIAL IV ONE (17:25)
[2023-08-24] MEDS ORDERED: Ondansetron Hydrochloride 4 MG/2 ML VIAL IV PRN (18:15)
[2023-08-25] VITALS: BP 113/63
[2023-08-25 06:37] LABS: HEMATOCRIT 40.3 % (37.0-47.0); MEAN CORPUSCULAR HGB 28.4 pg (27.0-31.0); MEAN CORPUSCULAR HGB CONC 31.3 g/dl (33.0-37.0); MEAN PLATELET VOLUME 9.7 fl (9.6-12.3); PLATELET COUNT AUTOMATED 232 10*3/uL (130-400); RED BLOOD COUNT 4.43 10*6/uL (4.10-5.10); RED CELL DISTRI WIDTH 15.4 % (0-14.5); WHITE BLOOD COUNT 15.1 10*3/uL (4.8-10.8)
[2023-08-25 06:42] LABS: MANUAL DIFF REFLEX YES
[2023-08-25 06:57] LABS: BUN 10 mg/dl (9-23); CHLORIDE 100 mmol/L (98-107); POTASSIUM 4.7 mmol/L (3.4-5.1)
[2023-08-25 07:47] LABS: PLATELET SUFFICIENCY NORMAL (NORMAL); TOTAL CELLS COUNTED 100 #CELLS
[2023-08-25 08:00] VITALS: BP 125/52
[2023-08-25] MEDS ORDERED: HEEL PROTECTOR DEVICE ONE (09:01)
[2023-08-25] MEDS ORDERED: ALGINATE DRESSING/CME-CELL 1 EACH BANDAGE T ONE (09:01)
[2023-08-25] MEDS ORDERED: NYSTATIN 15 GM BOT T SCH (10:00)
[2023-08-25] MEDS ORDERED: Amoxicillin/Clavulanate Pota 875 MG TAB PO SCH (11:30)
[2023-08-25 12:00] VITALS: BP 157/64
[2023-08-25] MEDS ORDERED: METRONIDAZOLE 100 ML IV SCH (14:00)
[2023-08-25 16:00] VITALS: BP 138/71
[2023-08-25 20:00] VITALS: BP 138/71
[2023-08-26] VITALS: BP 130/66
[2023-08-26 06:15] LABS: HEMATOCRIT 40.3 % (37.0-47.0); MEAN CELL VOLUME 91.4 fl (81.0-99.0); MEAN CORPUSCULAR HGB 28.1 pg (27.0-31.0); MEAN CORPUSCULAR HGB CONC 30.8 g/dl (33.0-37.0); MEAN PLATELET VOLUME 10.1 fl (9.6-12.3); PLATELET COUNT AUTOMATED 243 10*3/uL (130-400); RED BLOOD COUNT 4.41 10*6/uL (4.10-5.10); RED CELL DISTRI WIDTH 15.4 % (0-14.5); WHITE BLOOD COUNT 18.3 10*3/uL (4.8-10.8)
[2023-08-26 06:21] LABS: MANUAL DIFF REFLEX YES
[2023-08-26 06:41] LABS: BUN 9 mg/dl (9-23); CHLORIDE 102 mmol/L (98-107); POTASSIUM 4.2 mmol/L (3.4-5.1)
[2023-08-26 06:56] LABS: PLATELET SUFFICIENCY NORMAL (NORMAL); TOTAL CELLS COUNTED 100 #CELLS
[2023-08-26 08:00] VITALS: BP 155/56
[2023-08-26] MEDS ORDERED: predniSONE 20 MG TAB PO SCH (10:00)
[2023-08-26 12:00] VITALS: BP 140/53
[2023-08-26 16:00] VITALS: BP 146/58
[2023-08-26 20:00] VITALS: BP 157/73
[2023-08-27] VITALS: BP 135/55
[2023-08-27 06:41] LABS: HEMATOCRIT 35.7 % (37.0-47.0); MEAN CELL VOLUME 90.8 fl (81.0-99.0); MEAN CORPUSCULAR HGB 28.5 pg (27.0-31.0); MEAN CORPUSCULAR HGB CONC 31.4 g/dl (33.0-37.0); MEAN PLATELET VOLUME 9.5 fl (9.6-12.3); PLATELET COUNT AUTOMATED 204 10*3/uL (130-400); RED BLOOD COUNT 3.93 10*6/uL (4.10-5.10); RED CELL DISTRI WIDTH 15.4 % (0-14.5); WHITE BLOOD COUNT 15.6 10*3/uL (4.8-10.8)
[2023-08-27 06:49] LABS: MANUAL DIFF REFLEX YES
[2023-08-27 07:08] LABS: BUN 11 mg/dl (9-23); CHLORIDE 101 mmol/L (98-107); POTASSIUM 4.2 mmol/L (3.4-5.1)
[2023-08-27 07:13] LABS: TOTAL CELLS COUNTED 100 #CELLS
[2023-08-27 07:14] LABS: BURR CELLS MODERATE; PLATELET SUFFICIENCY NORMAL (NORMAL); POLYCHROMASIA SLIGHT; ROULEAUX SLIGHT
[2023-08-27 08:00] VITALS: BP 148/55
[2023-08-27] MEDS ORDERED: PSYLLIUM 1 PCK PACKET PO SCH (10:00)
[2023-08-27] MEDS ORDERED: RIVAROXABAN 2.5 MG TABLET PO SCH (10:00)
[2023-08-27 12:00] VITALS: BP 143/60
[2023-08-27 16:00] VITALS: BP 135/65
[2023-08-27 21:09] VITALS: BP 142/54
[2023-08-27 21:11] VITALS: BP 142/54
[2023-08-28] VITALS: BP 141/60
[2023-08-28 08:00] VITALS: BP 140/56
[2023-08-28] MEDS ORDERED: Albuterol Sulf/Ipratropium 3 ML VIAL NEB ONE (08:20)
[2023-08-28 12:00] VITALS: BP 134/51
[2023-08-28 16:00] VITALS: BP 125/54
[2023-08-28 20:00] VITALS: BP 132/46
[2023-08-29] VITALS: BP 130/60
[2023-08-29 08:00] VITALS: BP 126/57
[2023-08-29] MEDS ORDERED: Albuterol Sulf/Ipratropium 3 ML VIAL NEB ONE (08:25)
[2023-08-29] MEDS ORDERED: PREDNISONE10 MG PO (11:15)
[2023-08-29] MEDS ORDERED: AMOX-CLAV 875-1 EACH PO (11:15)
[2023-08-29] MEDS ORDERED: HYDROCODONE-AC1 EAC1 PO (11:16)
[2023-08-29] MEDS ORDERED: LAXATIVE5 MG PO (11:17)
[2023-08-29] MEDS ORDERED: METAMUCIL FIBE3.4 GM PO (11:17)
[2023-08-29 11:59] VITALS: BP 137/62
== END 2023-08-29 17:10 | DRG 481 ==
LOC: ED 23:30 → EDHOLD 08-23 03:01 → 4E 08-23 03:01 → EDHOLD 08-23 04:25 → 4E 08-23 16:59
PROVIDERS: Emergency Medicine; Student in an Organized Health Care Education/Training Program; ADMIT Internal Medicine; ATTEND Internal Medicine
PROC: 0QS704Z Reposition Left Upper Femur with Internal Fixation Device, Open Approach (ICD-10-PCS; principal; 2023-08-24)
PROC: 3E0T3BZ Introduction of Anesthetic Agent into Peripheral Nerves and Plexi, Percutaneous Approach (ICD-10-PCS; 2023-08-24)
DX: M80.052A Age-related osteoporosis with current pathological fracture, left femur, initial encounter for fracture (principal); F33.9 Major depressive disorder, recurrent, unspecified; I96 Gangrene, not elsewhere classified; Z68.42 Body mass index [BMI] 45.0-49.9, adult; K61.0 Anal abscess; M17.12 Unilateral primary osteoarthritis, left knee; M32.9 Systemic lupus erythematosus, unspecified; M16.12 Unilateral primary osteoarthritis, left hip; R73.9 Hyperglycemia, unspecified; E66.01 Morbid (severe) obesity due to excess calories; J45.909 Unspecified asthma, uncomplicated; M10.9 Gout, unspecified; I10 Essential (primary) hypertension; T38.0X5A Adverse effect of glucocorticoids and synthetic analogues, initial encounter; I89.0 Lymphedema, not elsewhere classified; J44.9 Chronic obstructive pulmonary disease, unspecified; E78.5 Hyperlipidemia, unspecified; W07.XXXA Fall from chair, initial encounter; Z86.718 Personal history of other venous thrombosis and embolism; Y92.89 Other specified places as the place of occurrence of the external cause; Z88.1 Allergy status to other antibiotic agents; Z88.8 Allergy status to other drugs, medicaments and biological substances; Z90.49 Acquired absence of other specified parts of digestive tract; Z87.891 Personal history of nicotine dependence; Z82.3 Family history of stroke; Z82.0 Family history of epilepsy and other diseases of the nervous system; Z80.3 Family history of malignant neoplasm of breast; Z82.49 Family history of ischemic heart disease and other diseases of the circulatory system; Y93.89 Activity, other specified; Y99.8 Other external cause status

== ENCOUNTER → 2023-09-14 | Outpatient (CLI) | payer OTHER ==
[~2023-09-14] MED LIST changes: +AMOX-CLAV 875-1 EACH PO; +HYDROCODONE-AC1 EAC1 PO; +LAXATIVE5 MG PO; +METAMUCIL FIBE3.4 GM PO
== END | disposition home or self-care (01) ==
LOC: ORTHO 01:32
PROVIDERS: ATTEND Orthopaedic Surgery
DX: S72.402D Unspecified fracture of lower end of left femur, subsequent encounter for closed fracture with routine healing (principal); M80.052D Age-related osteoporosis with current pathological fracture, left femur, subsequent encounter for fracture with routine healing; X58.XXXD Exposure to other specified factors, subsequent encounter

== ENCOUNTER → 2023-10-05 | Outpatient (CLI) | payer OTHER | LOC: ORTHO 01:06 | PROVIDERS: ATTEND Orthopaedic Surgery | DX: M79.644 Pain in right finger(s) (principal) ==

== ENCOUNTER → 2023-10-19 | Outpatient (CLI) | payer OTHER ==
[~2023-10-19] MED LIST changes: +LIPITOR20 MG PO
== END | disposition home or self-care (01) ==
LOC: ORTHO 01:31
PROVIDERS: ATTEND Orthopaedic Surgery
DX: M80.052D Age-related osteoporosis with current pathological fracture, left femur, subsequent encounter for fracture with routine healing (principal); M17.12 Unilateral primary osteoarthritis, left knee

== ENCOUNTER → 2023-10-25 | Day surgery (SDC) | payer OTHER ==
[~2023-10-25] VITALS: Ht 165.1 cm; Wt 131.5 kg
[~2023-10-25] MED LIST changes: +BUPIVACAINE 0.5% 10 ML VIAL ONE; +Ketamine Hydrochloride 50 MG/5 ML SYRINGE IV ONE; +Lactated Ringer's Solution 1,000 ML IV ONE; +Lidocaine Hydrochloride 30 ML VIAL ONE; +Midazolam Hydrochloride 2 MG/2 ML VIAL IV ONE; +Midazolam Hydrochloride 2 MG/2 ML VIAL ONE; +PROPOFOL 200 MG/20 ML VIAL IV ONE; +ceFAZolin sodium/sodium chlor 20 ML IV ONE; +fentaNYL CITRATE 100 MCG/2 ML VIAL IV ONE; +fentaNYL CITRATE/PF 50 MCG/ML SYRINGE IV ONE; +fentaNYL CITRATE/PF 50 MCG/ML SYRINGE ONE
[2023-10-25 08:28] VITALS: BP 135/54
[2023-10-25 09:07] LABS: ACT PARTIAL THROMBO TIME 26.3 SECONDS (20.0-32.1)
[2023-10-25 10:05] VITALS: BP 112/61
[2023-10-25 10:20] VITALS: BP 133/52
[2023-10-25 10:35] VITALS: BP 134/51
[2023-10-25 10:50] VITALS: BP 127/52
== END | disposition home or self-care (01) ==
LOC: SDC 10-23 08:00
PROVIDERS: ATTEND Orthopaedic Surgery
DX: I96 Gangrene, not elsewhere classified (principal); L98.498 Non-pressure chronic ulcer of skin of other sites with other specified severity; I10 Essential (primary) hypertension; J44.9 Chronic obstructive pulmonary disease, unspecified; E78.00 Pure hypercholesterolemia, unspecified; F32.9 Major depressive disorder, single episode, unspecified; M10.9 Gout, unspecified; F10.90 Alcohol use, unspecified, uncomplicated; E66.01 Morbid (severe) obesity due to excess calories; Z68.42 Body mass index [BMI] 45.0-49.9, adult; Z87.442 Personal history of urinary calculi; Z90.49 Acquired absence of other specified parts of digestive tract; Z87.891 Personal history of nicotine dependence; Z98.890 Other specified postprocedural states; Z79.891 Long term (current) use of opiate analgesic; Z79.899 Other long term (current) drug therapy; Z80.3 Family history of malignant neoplasm of breast; Z82.49 Family history of ischemic heart disease and other diseases of the circulatory system

== ENCOUNTER → 2023-10-31 | Outpatient (CLI) | payer OTHER ==
[~2023-10-31] MED LIST changes: -BUPIVACAINE 0.5% 10 ML VIAL ONE; -Ketamine Hydrochloride 50 MG/5 ML SYRINGE IV ONE; -Lactated Ringer's Solution 1,000 ML IV ONE; -Lidocaine Hydrochloride 30 ML VIAL ONE; -Midazolam Hydrochloride 2 MG/2 ML VIAL IV ONE; -Midazolam Hydrochloride 2 MG/2 ML VIAL ONE; -PROPOFOL 200 MG/20 ML VIAL IV ONE; -ceFAZolin sodium/sodium chlor 20 ML IV ONE; -fentaNYL CITRATE 100 MCG/2 ML VIAL IV ONE; -fentaNYL CITRATE/PF 50 MCG/ML SYRINGE IV ONE; -fentaNYL CITRATE/PF 50 MCG/ML SYRINGE ONE
== END | disposition home or self-care (01) ==
LOC: ORTHO 01:06
PROVIDERS: ATTEND Orthopaedic Surgery
DX: M80.052D Age-related osteoporosis with current pathological fracture, left femur, subsequent encounter for fracture with routine healing (principal); M17.12 Unilateral primary osteoarthritis, left knee

== ENCOUNTER 2023-12-11 13:38 | Inpatient (IN) | payer OTHER ==
[~2023-12-11] VITALS: Ht 165.1 cm; Wt 151.6 kg
[~2023-12-11 13:38] MED LIST changes: +BUMETANIDE0.5 MG PO; +DAKIN'S473 ML T; +FOLTABS 800 TA1 EACH PO; +JARDIANCE10 MG PO; +KLOR-CON M2020 ME1 PO; +LEVOFLOXACIN750 M2 PO; +SOAANZ20 M1 PO; +VITAMIN D3125 MC1 PO
[2023-12-11 14:00] VITALS: BP 114/50
[2023-12-11 14:39] LABS: BASO % 0.4 % (0.0-1.0); EOS # 0.4 10*3/uL (0.0-0.4); EOS % 4.8 % (1.0-4.0); HEMATOCRIT 34.8 % (37.0-47.0); LYMPH # 0.8 10*3/uL (1.3-4.4); LYMPH % 10.8 % (27.0-41.0); MEAN CELL VOLUME 95.1 fl (81.0-99.0); MEAN CORPUSCULAR HGB 28.4 pg (27.0-31.0); MEAN CORPUSCULAR HGB CONC 29.9 g/dl (33.0-37.0); MEAN PLATELET VOLUME 8.3 fl (9.6-12.3); MONO # 0.5 10*3/uL (0.1-1.0); NEUT # 5.8 10*3/uL (2.3-7.9); NEUT % 77.2 % (47.0-73.0); PLATELET COUNT AUTOMATED 412 10*3/uL (130-400); RED BLOOD COUNT 3.66 10*6/uL (4.10-5.10); RED CELL DISTRI WIDTH 14.7 % (0-14.5); WHITE BLOOD COUNT 7.5 10*3/uL (4.8-10.8)
[2023-12-11 14:50] LABS: ACT PARTIAL THROMBO TIME 21.8 SECONDS (20.0-32.1)
[2023-12-11 15:08] LABS: ALKALINE PHOSPHATASE 78 U/L (46-116); CHLORIDE 107 mmol/L (98-107); POTASSIUM 3.7 mmol/L (3.4-5.1); SGPT/ALT 16 U/L (5-49)
[2023-12-11 15:15] LABS: BUN < 5 mg/dl (9-23)
[2023-12-11] MEDS ORDERED: MORPHINE Sulfate 2 MG/ML SYR IV PRN (16:20)
[2023-12-11] MEDS ORDERED: BISACODYL 5 MG TAB PO PRN (16:20)
[2023-12-11] MEDS ORDERED: Magnesium Hydroxide 30 ML UDC PO PRN (16:20)
[2023-12-11] MEDS ORDERED: TEMAZEPAM 15 MG CAP PO PRN (16:20)
[2023-12-11] MEDS ORDERED: BISACODYL 10 MG SUPP R PRN (16:20)
[2023-12-11] MEDS ORDERED: Ondansetron Hydrochloride 4 MG/2 ML VIAL IV PRN (16:20)
[2023-12-11] MEDS ORDERED: BUDESONIDE 0.5 MG AMP NEB SCH (16:45)
[2023-12-11] MEDS ORDERED: Albuterol Sulfate 2.5 MG/3 ML VIAL NEB SCH (16:45)
[2023-12-11] MEDS ORDERED: BUMETANIDE 1 MG TAB PO SCH (18:00)
[2023-12-11] MEDS ORDERED: ceFAZolin sodium 1 GM in SYRINGE INFUSION 10 ML IV SCH (18:00)
[2023-12-11] MEDS ORDERED: RIVAROXABAN 2.5 MG TABLET PO SCH (22:00)
[2023-12-11] MEDS ORDERED: Budesonide/Formoterol Fumarate 160/4.5 inhaler INH SCH (22:00)
[2023-12-12 01:40] VITALS: BP 116/55
[2023-12-12] MEDS ORDERED: ceFAZolin sodium 1 GM VIAL ONE (01:40)
[2023-12-12 05:48] VITALS: BP 124/48
[2023-12-12 06:45] LABS: BASO % 0.4 % (0.0-1.0); EOS # 0.3 10*3/uL (0.0-0.4); EOS % 3.6 % (1.0-4.0); HEMATOCRIT 31.3 % (37.0-47.0); LYMPH % 12.3 % (27.0-41.0); MEAN CORPUSCULAR HGB 28.2 pg (27.0-31.0); MEAN PLATELET VOLUME 8.2 fl (9.6-12.3); MONO # 0.7 10*3/uL (0.1-1.0); NEUT # 6.3 10*3/uL (2.3-7.9); NEUT % 74.8 % (47.0-73.0); PLATELET COUNT AUTOMATED 361 10*3/uL (130-400); RED BLOOD COUNT 3.33 10*6/uL (4.10-5.10); RED CELL DISTRI WIDTH 14.6 % (0-14.5); WHITE BLOOD COUNT 8.5 10*3/uL (4.8-10.8)
[2023-12-12 07:14] LABS: CHLORIDE 106 mmol/L (98-107); POTASSIUM 3.6 mmol/L (3.4-5.1)
[2023-12-12 07:15] LABS: BUN < 5 mg/dl (9-23)
[2023-12-12 08:00] VITALS: BP 133/54
[2023-12-12 08:05] LABS: VITAMIN D, 25-HYDROXY 24.4 ng/mL (30-100)
[2023-12-12] MEDS ORDERED: FOLIC ACID 1 MG TAB PO SCH (10:00)
[2023-12-12] MEDS ORDERED: ESCITALOPRAM OXALATE 20 MG TAB PO SCH (10:00)
[2023-12-12] MEDS ORDERED: Cholecalciferol 5,000 IU CAP (125 MCG) PO SCH (10:00)
[2023-12-12] MEDS ORDERED: ceFAZolin sodium/sodium chlor 10 ML IV SCH (10:00)
[2023-12-12] MEDS ORDERED: EMPAGLIFLOZIN 10 MG TABLET PO SCH (10:00)
[2023-12-12] MEDS ORDERED: Methotrexate Sodium 2.5 MG TAB PO SCH (10:00)
[2023-12-12 12:00] VITALS: BP 128/50
[2023-12-12 16:00] VITALS: BP 113/54
[2023-12-12] MEDS ORDERED: ceFAZolin sodium 1 GM in SYRINGE INFUSION 10 ML IV SCH (18:00)
[2023-12-12 20:00] VITALS: BP 120/53
[2023-12-12] MEDS ORDERED: Menthol/Zinc Oxide 4 GM THIN T SCH (22:00)
[2023-12-12] MEDS ORDERED: NYSTATIN 15 GM BOT T SCH (22:00)
[2023-12-13] VITALS: BP 117/52
[2023-12-13 04:06] LABS: TOTAL PROTEIN, SERUM 5.3 g/dL (6.0-8.5)
[2023-12-13 06:30] LABS: BASO % 0.2 % (0.0-1.0); EOS # 0.3 10*3/uL (0.0-0.4); EOS % 4.8 % (1.0-4.0); HEMATOCRIT 32.5 % (37.0-47.0); LYMPH # 0.9 10*3/uL (1.3-4.4); MEAN CELL VOLUME 93.7 fl (81.0-99.0); MEAN CORPUSCULAR HGB CONC 29.8 g/dl (33.0-37.0); MEAN PLATELET VOLUME 8.4 fl (9.6-12.3); MONO # 0.5 10*3/uL (0.1-1.0); MONO % 7.4 % (3.0-9.0); NEUT # 4.8 10*3/uL (2.3-7.9); NEUT % 72.7 % (47.0-73.0); PLATELET COUNT AUTOMATED 372 10*3/uL (130-400); RED BLOOD COUNT 3.47 10*6/uL (4.10-5.10); RED CELL DISTRI WIDTH 14.7 % (0-14.5); WHITE BLOOD COUNT 6.6 10*3/uL (4.8-10.8)
[2023-12-13 06:35] LABS: BUN 5 mg/dl (9-23); CHLORIDE 105 mmol/L (98-107); POTASSIUM 3.6 mmol/L (3.4-5.1)
[2023-12-13 08:00] VITALS: BP 135/66
[2023-12-13 09:13] LABS: IMMUNOGLOBULIN G, QNT 778 mg/dL (586-1602); IMMUNOGLOBULIN M, QNT 118 mg/dL (26-217)
[2023-12-13 12:00] VITALS: BP 118/46
[2023-12-13 12:08] LABS: CCP ANTIBODIES IGG/IGA 4 units (0-19)
[2023-12-13 14:09] LABS: A/G RATIO 0.9 (0.7-1.7); ALBUMIN 2.5 g/dL (2.9-4.4); ALPHA-1-GLOBULIN 0.4 g/dL (0.0-0.4); BETA GLOBULIN 0.9 g/dL (0.7-1.3); GAMMA GLOBULIN 0.7 g/dL (0.4-1.8); GLOBULIN, TOTAL 2.8 g/dL (2.2-3.9); PE INTERPRETATION Comment: (.)
[2023-12-13 16:00] VITALS: BP 107/61
[2023-12-13 17:07] LABS: ANTICARDIOLIPIN AB, IGG, QN <9 GPL U/mL (0-14); ANTICARDIOLIPIN AB, IGM, QN <9 MPL U/mL (0-12); CARDIOLIPIN AB IGA <9 APL U/mL (0-11)
[2023-12-13 20:00] VITALS: BP 117/49
[2023-12-13] MEDS ORDERED: Acetaminophen/Hydrocodone ES 7.5/325 tablet PO PRN (22:15)
[2023-12-14] VITALS: BP 113/44
[2023-12-14 03:06] LABS: DVVTMIXRFX CHG (NP); HEXAGONAL PHASE PHOSPHOLIPID 5 sec (0-11); LUPUS DRVVT 83.7 sec (0.0-47.0); PTT-LA 51.6 sec (0.0-43.5); PTT-LA MIX 45.8 sec (0.0-40.5)
[2023-12-14 04:06] LABS: LUPUS REFLEX INTERPRETATION Comment: (.)
[2023-12-14 06:54] LABS: BASO % 0.4 % (0.0-1.0); EOS # 0.3 10*3/uL (0.0-0.4); EOS % 3.7 % (1.0-4.0); HEMATOCRIT 33.1 % (37.0-47.0); LYMPH # 1.2 10*3/uL (1.3-4.4); LYMPH % 16.2 % (27.0-41.0); MEAN CELL VOLUME 94.3 fl (81.0-99.0); MEAN CORPUSCULAR HGB 27.9 pg (27.0-31.0); MEAN CORPUSCULAR HGB CONC 29.6 g/dl (33.0-37.0); MEAN PLATELET VOLUME 8.6 fl (9.6-12.3); MONO # 0.6 10*3/uL (0.1-1.0); MONO % 7.9 % (3.0-9.0); NEUT # 5.2 10*3/uL (2.3-7.9); NEUT % 70.6 % (47.0-73.0); PLATELET COUNT AUTOMATED 343 10*3/uL (130-400); RED BLOOD COUNT 3.51 10*6/uL (4.10-5.10); RED CELL DISTRI WIDTH 14.9 % (0-14.5); WHITE BLOOD COUNT 7.4 10*3/uL (4.8-10.8)
[2023-12-14 07:03] LABS: CHLORIDE 103 mmol/L (98-107); POTASSIUM 3.3 mmol/L (3.4-5.1)
[2023-12-14 07:06] LABS: BUN < 5 mg/dl (9-23)
[2023-12-14 08:00] VITALS: BP 127/71
[2023-12-14] MEDS ORDERED: FLUCONAZOLE 150 MG TAB PO ONE (09:30)
[2023-12-14 12:00] VITALS: BP 119/51
[2023-12-14] MEDS ORDERED: ALGINATE DRESSING/CME-CELL 1 EACH BANDAGE T ONE (15:46)
[2023-12-14] MEDS ORDERED: LEPTOSPERMUM HONEY 4 X 5 INCH WOUND DRESSING T ONE (15:47)
[2023-12-14 16:00] VITALS: BP 114/54
[2023-12-14 20:00] VITALS: BP 116/51
[2023-12-15] VITALS: BP 115/49
[2023-12-15 06:22] LABS: BASO % 0.4 % (0.0-1.0); EOS # 0.3 10*3/uL (0.0-0.4); EOS % 4.2 % (1.0-4.0); HEMATOCRIT 31.3 % (37.0-47.0); LYMPH % 11.6 % (27.0-41.0); MEAN CELL VOLUME 91.5 fl (81.0-99.0); MEAN CORPUSCULAR HGB 28.7 pg (27.0-31.0); MEAN CORPUSCULAR HGB CONC 31.3 g/dl (33.0-37.0); MEAN PLATELET VOLUME 8.6 fl (9.6-12.3); MONO # 0.6 10*3/uL (0.1-1.0); MONO % 7.2 % (3.0-9.0); NEUT # 6.2 10*3/uL (2.3-7.9); NEUT % 75.6 % (47.0-73.0); PLATELET COUNT AUTOMATED 356 10*3/uL (130-400); RED BLOOD COUNT 3.42 10*6/uL (4.10-5.10); RED CELL DISTRI WIDTH 14.8 % (0-14.5); WHITE BLOOD COUNT 8.2 10*3/uL (4.8-10.8)
[2023-12-15 06:45] LABS: CHLORIDE 102 mmol/L (98-107); POTASSIUM 3.2 mmol/L (3.4-5.1)
[2023-12-15 06:49] LABS: BUN < 5 mg/dl (9-23)
[2023-12-15 08:00] VITALS: BP 122/56
[2023-12-15 12:00] VITALS: BP 100/54
[2023-12-15] MEDS ORDERED: Piperacillin Sodium/Tazobact 50 ML IV SCH (12:00)
[2023-12-15] MEDS ORDERED: BUMETANIDE 1 MG TAB PO SCH (14:00)
[2023-12-15 16:00] VITALS: BP 116/41
[2023-12-15 20:00] VITALS: BP 109/68
[2023-12-16] VITALS: BP 118/40
[2023-12-16 06:12] LABS: BASO % 0.5 % (0.0-1.0); EOS # 0.4 10*3/uL (0.0-0.4); EOS % 5.2 % (1.0-4.0); HEMATOCRIT 32.8 % (37.0-47.0); LYMPH # 1.1 10*3/uL (1.3-4.4); MEAN CELL VOLUME 92.9 fl (81.0-99.0); MEAN CORPUSCULAR HGB 28.6 pg (27.0-31.0); MEAN CORPUSCULAR HGB CONC 30.8 g/dl (33.0-37.0); MEAN PLATELET VOLUME 8.8 fl (9.6-12.3); MONO # 0.8 10*3/uL (0.1-1.0); MONO % 9.1 % (3.0-9.0); NEUT % 70.3 % (47.0-73.0); NUCLEATED RED BLOOD CELL 0.1 10*3/uL (0.0-0.0); NUCLEATED RED BLOOD CELL 0.6 % (0.0-0.0); PLATELET COUNT AUTOMATED 341 10*3/uL (130-400); RED BLOOD COUNT 3.53 10*6/uL (4.10-5.10); WHITE BLOOD COUNT 8.5 10*3/uL (4.8-10.8)
[2023-12-16 06:32] LABS: CHLORIDE 102 mmol/L (98-107); POTASSIUM 3.3 mmol/L (3.4-5.1)
[2023-12-16 06:33] LABS: BUN < 5 mg/dl (9-23)
[2023-12-16] MEDS ORDERED: POTASSIUM CHLORIDE 20 MEQ TAB PO ONE (07:40)
[2023-12-16 08:00] VITALS: BP 106/47
[2023-12-16 12:00] VITALS: BP 110/50; BP 122/66
[2023-12-16 16:12] VITALS: BP 124/63
[2023-12-16] MEDS ORDERED: POTASSIUM CHLORIDE 20 MEQ TAB PO SCH (18:00)
[2023-12-16 20:00] VITALS: BP 116/52
[2023-12-17] VITALS: BP 109/67
[2023-12-17] MEDS ORDERED: LEPTOSPERMUM HONEY 4 X 5 INCH WOUND DRESSING T ONE ×2 (00:20→00:30)
[2023-12-17] MEDS ORDERED: LEPTOSPERMUM HONEY 0.5 OZ TUBE T ONE (00:21)
[2023-12-17] MEDS ORDERED: ALGINATE DRESSING/CME-CELL 1 EACH BANDAGE T ONE (00:21)
[2023-12-17 05:59] LABS: CHLORIDE 99 mmol/L (98-107); POTASSIUM 3.3 mmol/L (3.4-5.1)
[2023-12-17 06:00] LABS: BUN < 5 mg/dl (9-23)
[2023-12-17 08:00] VITALS: BP 138/56
[2023-12-17] MEDS ORDERED: POTASSIUM CHLORIDE 20 MEQ TAB PO SCH (10:00)
[2023-12-17 12:00] VITALS: BP 130/60
[2023-12-17 16:00] VITALS: BP 126/52
[2023-12-17 20:00] VITALS: BP 117/59
[2023-12-17] MEDS ORDERED: FLUCONAZOLE 100 MG TAB PO ONE (23:50)
[2023-12-18] VITALS: BP 109/48
[2023-12-18] MEDS ORDERED: LEPTOSPERMUM HONEY 4 X 5 INCH WOUND DRESSING T ONE (00:40)
[2023-12-18] MEDS ORDERED: ALGINATE DRESSING/CME-CELL 1 EACH BANDAGE T ONE (00:40)
[2023-12-18] MEDS ORDERED: ALGINATE DRESSING/CME-CELL 4X4 1 EACH BANDAGE T ONE (02:18)
[2023-12-18 06:22] LABS: CHLORIDE 103 mmol/L (98-107); POTASSIUM 3.4 mmol/L (3.4-5.1)
[2023-12-18 06:28] LABS: BUN < 5 mg/dl (9-23)
[2023-12-18 08:00] VITALS: BP 119/52
[2023-12-18 12:00] VITALS: BP 118/43
[2023-12-18] MEDS ORDERED: Acetaminophen/Hydrocodone ES 7.5/325 tablet PO PRN (15:55)
[2023-12-18 16:00] VITALS: BP 112/50
[2023-12-18 20:00] VITALS: BP 116/54
[2023-12-19] VITALS: BP 110/42
[2023-12-19] MEDS ORDERED: HYDROCODONE-AC1 EAC2 PO (07:33)
[2023-12-19] MEDS ORDERED: BUMETANIDE1 MG PO (07:33)
[2023-12-19] MEDS ORDERED: NATURE'S BLEND F1 MG PO (07:33)
[2023-12-19] MEDS ORDERED: METHOTREXATE S2.5 M1 PO (07:33)
[2023-12-19] MEDS ORDERED: POTASSIUM CHLO20 ME4 PO (07:33)
[2023-12-19] MEDS ORDERED: CIPRO500 MG PO (07:35)
[2023-12-19 08:00] VITALS: BP 121/52
[2023-12-19] MEDS ORDERED: ALGINATE DRESSING/CME-CELL 1 EACH BANDAGE T ONE (12:09)
[2023-12-19] MEDS ORDERED: LEPTOSPERMUM HONEY 4 X 5 INCH WOUND DRESSING T ONE (12:11)
== END 2023-12-19 12:35 | DRG 602 ==
LOC: ED 13:38 → 4E 15:52 → EDHOLD 15:52 → 4E 12-12 08:45
PROVIDERS: Nurse Practitioner Family; Registered Nurse; Student in an Organized Health Care Education/Training Program; ADMIT Internal Medicine; ATTEND Internal Medicine
DX: L03.116 Cellulitis of left lower limb (principal); E43 Unspecified severe protein-calorie malnutrition; Z68.43 Body mass index [BMI] 50.0-59.9, adult; L03.115 Cellulitis of right lower limb; E66.01 Morbid (severe) obesity due to excess calories; L89.616 Pressure-induced deep tissue damage of right heel; B37.31 Acute candidiasis of vulva and vagina; E78.5 Hyperlipidemia, unspecified; I10 Essential (primary) hypertension; M81.0 Age-related osteoporosis without current pathological fracture; J44.89 Other specified chronic obstructive pulmonary disease; M17.12 Unilateral primary osteoarthritis, left knee; M16.12 Unilateral primary osteoarthritis, left hip; R73.9 Hyperglycemia, unspecified; M1A.9XX0 Chronic gout, unspecified, without tophus (tophi); I89.0 Lymphedema, not elsewhere classified; I87.2 Venous insufficiency (chronic) (peripheral); E55.9 Vitamin D deficiency, unspecified; M32.9 Systemic lupus erythematosus, unspecified; L30.8 Other specified dermatitis; L89.610 Pressure ulcer of right heel, unstageable; S31.109A Unspecified open wound of abdominal wall, unspecified quadrant without penetration into peritoneal cavity, initial encounter; X58.XXXA Exposure to other specified factors, initial encounter; S61.201A Unspecified open wound of left index finger without damage to nail, initial encounter; I70.90 Unspecified atherosclerosis; F43.20 Adjustment disorder, unspecified; A49.8 Other bacterial infections of unspecified site; Y93.89 Activity, other specified; Y92.89 Other specified places as the place of occurrence of the external cause; Y99.8 Other external cause status; Z87.442 Personal history of urinary calculi; Z88.1 Allergy status to other antibiotic agents; Z91.048 Other nonmedicinal substance allergy status; Z90.49 Acquired absence of other specified parts of digestive tract; Z87.891 Personal history of nicotine dependence; Z80.9 Family history of malignant neoplasm, unspecified; Z83.1 Family history of other infectious and parasitic diseases; Z82.49 Family history of ischemic heart disease and other diseases of the circulatory system; Z86.718 Personal history of other venous thrombosis and embolism

== ENCOUNTER → 2024-07-03 | Day surgery (SDC) | payer OTHER ==
[~2024-07-03] VITALS: Ht 162.5 cm; Wt 142.4 kg
[~2024-07-03] MED LIST changes: +ACETAMINOPHEN 100 ML IV ONE; +BUPivacaine 0.5% 10 ML VIAL ONE; +CALMOSEPTINE OI71 GM T; +CEFDINIR300 MG PO; +CEPHALEXIN500 M1 PO; +CIPRO500 MG PO; +CYMBALTA30 MG PO; +HYDROCODONE-AC1 EAC2 PO; +LAC-HYDRIN FIV226 GM T; +Lactated Ringer's Solution 1,000 ML IV ONE; +Lidocaine Hydrochloride 30 ML VIAL ONE; +Lidocaine Hydrochloride 5 ML VIAL IV ONE; +METHOTREXATE S2.5 M1 PO; +MORPHINE Sulfate 2 MG/ML SYR IV PRN; +NATURE'S BLEND F1 MG PO; +Ondansetron Hydrochloride 4 MG/2 ML VIAL IV ONE; +PLAQUENIL200 MG PO; +POTASSIUM CHLO20 ME4 PO; +PROPOFOL 200 MG/20 ML VIAL IV ONE; +PROZAC20 MG PO; +VITAMIN D250 MC1 PO; +VITAMIN D3125 MCG PO; +ceFAZolin sodium/sodium chlor 10 ML IV ONE; +ceFAZolin sodium/sodium chlor 20 ML IV ONE
[2024-07-03 08:00] VITALS: BP 131/72
[2024-07-03 08:20] LABS: ALKALINE PHOSPHATASE 67 U/L (46-116); BUN 9 mg/dl (9-23); CHLORIDE 104 mmol/L (98-107); POTASSIUM 4.1 mmol/L (3.4-5.1); TOTAL PROTEIN 7.2 gm/dL (6.0-8.0)
[2024-07-03 08:23] LABS: SGPT/ALT < 7 U/L (5-49)
[2024-07-03 09:25] VITALS: BP 135/78
[2024-07-03 09:40] VITALS: BP 97/46
[2024-07-03 09:55] VITALS: BP 107/53
== END | disposition home or self-care (01) ==
LOC: SDC 06-30 10:15
PROVIDERS: ATTEND Orthopaedic Surgery
DX: I96 Gangrene, not elsewhere classified (principal); M34.89 Other systemic sclerosis; M87.045 Idiopathic aseptic necrosis of left finger(s); I10 Essential (primary) hypertension; J44.9 Chronic obstructive pulmonary disease, unspecified; E78.5 Hyperlipidemia, unspecified; F32.9 Major depressive disorder, single episode, unspecified; M10.9 Gout, unspecified; F10.90 Alcohol use, unspecified, uncomplicated; Z87.442 Personal history of urinary calculi; Z87.891 Personal history of nicotine dependence; Z90.49 Acquired absence of other specified parts of digestive tract; Z98.890 Other specified postprocedural states; Z79.891 Long term (current) use of opiate analgesic; Z79.899 Other long term (current) drug therapy; Z91.040 Latex allergy status; Z91.048 Other nonmedicinal substance allergy status; Z88.8 Allergy status to other drugs, medicaments and biological substances; Z80.3 Family history of malignant neoplasm of breast; Z82.49 Family history of ischemic heart disease and other diseases of the circulatory system

== ENCOUNTER 2024-11-10 02:59 | Emergency (ER) | payer MEDICARE ==
[~2024-11-10 02:59] MED LIST changes: -ACETAMINOPHEN 100 ML IV ONE; +ATORVASTATIN CA20 M1 PO; -BUPivacaine 0.5% 10 ML VIAL ONE; +ESCITALOPRAM OX20 MG PO; +LASIX40 MG PO; -Lactated Ringer's Solution 1,000 ML IV ONE; -Lidocaine Hydrochloride 30 ML VIAL ONE; -Lidocaine Hydrochloride 5 ML VIAL IV ONE; -MORPHINE Sulfate 2 MG/ML SYR IV PRN; +NYST SUSP PO; -Ondansetron Hydrochloride 4 MG/2 ML VIAL IV ONE; -PROPOFOL 200 MG/20 ML VIAL IV ONE; +XARE20MG PO; -ceFAZolin sodium/sodium chlor 10 ML IV ONE; -ceFAZolin sodium/sodium chlor 20 ML IV ONE
[2024-11-10 03:05] VITALS: BP 92/55
[2024-11-10] MEDS ORDERED: FLUCONAZOLE 100 MG TAB PO ONE (03:05)
[2024-11-10 03:15] LABS: BASO # 0.0 10*3/uL (0.0-0.1); BASO % 0.4 % (0.0-1.0); EOS # 0.4 10*3/uL (0.0-0.4); EOS % 4.3 % (1.0-4.0); MEAN CELL VOLUME 87.0 fl (81.0-99.0); MEAN CORPUSCULAR HGB 25.4 pg (27.0-31.0); MEAN PLATELET VOLUME 9.7 fl (9.6-12.3); MONO # 0.7 10*3/uL (0.1-1.0); MONO % 7.4 % (3.0-9.0); NEUT # 7.8 10*3/uL (2.3-7.9); NEUT % 77.9 % (47.0-73.0); NUCLEATED RED BLOOD CELL 0.0 % (0.0-0.0); NUCLEATED RED BLOOD CELL 0.0 10*3/uL (0.0-0.0); PLATELET COUNT AUTOMATED 308 10*3/uL (130-400); RED CELL DISTRI WIDTH 15.7 % (0-14.5)
[2024-11-10 03:37] LABS: BUN 9 mg/dl (9-23)
[2024-11-10 03:41] LABS: ETHYL ALCOHOL < 3.0 mg/dl (<3); SGPT/ALT < 7 U/L (5-49)
[2024-11-10] MEDS ORDERED: POTASSIUM CHLORIDE 20 MEQ TAB PO ONE (06:15)
[2024-11-10] MEDS ORDERED: FLUCONAZOLE100 MG PO (10:12)
== END 2024-11-10 12:02 | disposition home or self-care (01) ==
LOC: ED 02:59
PROVIDERS: Internal Medicine
DX: F43.23 Adjustment disorder with mixed anxiety and depressed mood (principal); I10 Essential (primary) hypertension; E78.00 Pure hypercholesterolemia, unspecified; J45.909 Unspecified asthma, uncomplicated; F32.A Depression, unspecified; E66.01 Morbid (severe) obesity due to excess calories; F17.200 Nicotine dependence, unspecified, uncomplicated; Z79.899 Other long term (current) drug therapy; Z88.8 Allergy status to other drugs, medicaments and biological substances; Z90.49 Acquired absence of other specified parts of digestive tract; Z98.890 Other specified postprocedural states

== ENCOUNTER 2024-12-22 15:45 | Inpatient (IN) | payer MEDICARE ==
[~2024-12-22] VITALS: Ht 165 cm; Wt 138.3 kg
[~2024-12-22 15:45] MED LIST changes: +ATORVASTATIN CA40 M1 PO; +CLOPIDOGREL75 MG PO; +DOXYCYCLINE HY100 M3 PO; +FLUCONAZOLE100 MG PO; +LEVOFLOXACIN500 MG PO; +LIDOCAINE30 G1 T; +MECLIZINE HCL25 M2 PO; +OXYGEN NAS; +SILVADENE,SSD C50 GM T
[2024-12-22 15:49] VITALS: BP 123/55
[2024-12-22] MEDS ORDERED: IOHEXOL 350 MG/ML 100 ML VIAL IV ONE ×2 (16:22→16:30)
[2024-12-22] MEDS ORDERED: SODIUM CHLORIDE 0.9% 100 ML IV ONE (16:22)
[2024-12-22] MEDS ORDERED: Ondansetron Hydrochloride 4 MG/2 ML VIAL IV ONE ×2 (16:25→19:45)
[2024-12-22 16:29] VITALS: BP 148/62
[2024-12-22] MEDS ORDERED: SODIUM CHLORIDE 0.9% 100 ML BAG IV ONE (16:30)
[2024-12-22 16:55] LABS: BASO # 0.0 10*3/uL (0.0-0.1); BASO % 0.3 % (0.0-1.0); EOS # 0.4 10*3/uL (0.0-0.4); EOS % 4.1 % (1.0-4.0); MEAN CELL VOLUME 82.4 fl (81.0-99.0); MEAN CORPUSCULAR HGB 23.8 pg (27.0-31.0); MEAN PLATELET VOLUME 9.1 fl (9.6-12.3); MONO # 0.4 10*3/uL (0.1-1.0); MONO % 4.3 % (3.0-9.0); NEUT # 7.8 10*3/uL (2.3-7.9); NEUT % 84.7 % (47.0-73.0); NUCLEATED RED BLOOD CELL 0.0 % (0.0-0.0); NUCLEATED RED BLOOD CELL 0.0 10*3/uL (0.0-0.0); PLATELET COUNT AUTOMATED 361 10*3/uL (130-400); RED CELL DISTRI WIDTH 16.8 % (0-14.5)
[2024-12-22 17:07] LABS: ACT PARTIAL THROMBO TIME 28.6 SECONDS (20.0-32.1)
[2024-12-22 17:19] LABS: BUN 6 mg/dl (9-23); CPK 16 U/L (34-171)
[2024-12-22 18:01] VITALS: BP 105/50
[2024-12-22 19:16] VITALS: BP 105/43
[2024-12-22] MEDS ORDERED: diphenhydrAMINE hydrochloride 50 MG/ML VIAL IV ONE (19:45)
[2024-12-22] MEDS ORDERED: Metoclopramide Hydrochloride 10 MG/2 ML VIAL IV ONE (19:45)
[2024-12-23] MEDS ORDERED: Albuterol Sulf/Ipratropium 3 ML VIAL NEB ONE ×2 (00:55→09:55)
[2024-12-23 01:28] VITALS: BP 134/52
[2024-12-23 07:41] VITALS: BP 100/44
[2024-12-23] MEDS ORDERED: Fioricet 325 MG1 TAB PO (09:27)
[2024-12-23] MEDS ORDERED: Ondansetron4 MG PO (09:27)
[2024-12-23] MEDS ORDERED: Acetaminophen/Hydrocodone 5 MG/325 MG TABLET PO PRN (12:35)
[2024-12-23] MEDS ORDERED: BISACODYL 10 MG SUPP R PRN (12:35)
[2024-12-23] MEDS ORDERED: BISACODYL 5 MG TAB PO PRN (12:35)
[2024-12-23] MEDS ORDERED: ACETAMINOPHEN 325 MG TAB PO PRN (12:35)
[2024-12-23 14:45] VITALS: BP 113/74
[2024-12-23 17:30] VITALS: BP 148/55
[2024-12-23] MEDS ORDERED: LIDOCAINE 5% ANORECTAL CREAM T SCH ×2 (18:00→22:00)
[2024-12-23] MEDS ORDERED: Albuterol Sulf/Ipratropium 3 ML VIAL NEB SCH (19:05)
[2024-12-23] MEDS ORDERED: FUROSEMIDE 40 MG TAB PO SCH (19:15)
[2024-12-23] MEDS ORDERED: Clopidogrel Hydrogen Sulfate 75 MG TAB PO SCH (19:15)
[2024-12-23] MEDS ORDERED: RIVAROXABAN 20 MG TAB PO SCH (19:15)
[2024-12-23] MEDS ORDERED: ESCITALOPRAM OXALATE 20 MG TAB PO SCH (19:15)
[2024-12-23] MEDS ORDERED: LISINOPRIL 10 MG TAB PO SCH (19:15)
[2024-12-23 20:00] VITALS: BP 144/62
[2024-12-23] MEDS ORDERED: BUDESONIDE 0.5 MG AMP NEB SCH (22:00)
[2024-12-23] MEDS ORDERED: NYSTATIN 15 GM BOT T SCH (22:00)
[2024-12-23] MEDS ORDERED: ATORVASTATIN CALCIUM 40 MG TABLET PO SCH (22:00)
[2024-12-24] VITALS: BP 132/50
[2024-12-24] MEDS ORDERED: SILVER SULFADIAZINE 25 GM TUBE T SCH ×2 (06:00→10:00)
[2024-12-24 06:12] LABS: BASO # 0.0 10*3/uL (0.0-0.1); BASO % 0.5 % (0.0-1.0); EOS # 0.4 10*3/uL (0.0-0.4); EOS % 5.9 % (1.0-4.0); MEAN CELL VOLUME 82.7 fl (81.0-99.0); MEAN CORPUSCULAR HGB 22.8 pg (27.0-31.0); MEAN PLATELET VOLUME 9.2 fl (9.6-12.3); MONO # 0.5 10*3/uL (0.1-1.0); MONO % 6.1 % (3.0-9.0); NEUT # 5.8 10*3/uL (2.3-7.9); NEUT % 77.1 % (47.0-73.0); NUCLEATED RED BLOOD CELL 0.0 % (0.0-0.0); NUCLEATED RED BLOOD CELL 0.0 10*3/uL (0.0-0.0); PLATELET COUNT AUTOMATED 341 10*3/uL (130-400); RED CELL DISTRI WIDTH 16.5 % (0-14.5)
[2024-12-24 06:36] LABS: BUN < 5 mg/dl (9-23)
[2024-12-24 08:00] VITALS: BP 115/43
[2024-12-24 12:00] VITALS: BP 112/44; BP 122/62
[2024-12-24 16:00] VITALS: BP 125/50
[2024-12-24 19:40] VITALS: BP 151/80
== END 2024-12-24 20:50 | DRG 102 ==
LOC: ED 15:45 → EDHOLD 12-23 10:05 → 5E 12-23 10:05 → EDHOLD 12-23 12:44 → 5E 12-23 17:04
PROVIDERS: Emergency Medicine; ADMIT Internal Medicine; ATTEND Internal Medicine
DX: G43.109 Migraine with aura, not intractable, without status migrainosus (principal); E43 Unspecified severe protein-calorie malnutrition; L03.116 Cellulitis of left lower limb; L03.115 Cellulitis of right lower limb; Z68.43 Body mass index [BMI] 50.0-59.9, adult; I89.0 Lymphedema, not elsewhere classified; I87.2 Venous insufficiency (chronic) (peripheral); Z66 Do not resuscitate; E78.5 Hyperlipidemia, unspecified; R73.9 Hyperglycemia, unspecified; F43.23 Adjustment disorder with mixed anxiety and depressed mood; M34.1 CR(E)ST syndrome; L89.322 Pressure ulcer of left buttock, stage 2; L89.312 Pressure ulcer of right buttock, stage 2; L89.152 Pressure ulcer of sacral region, stage 2; E66.01 Morbid (severe) obesity due to excess calories; Z88.1 Allergy status to other antibiotic agents; Z90.49 Acquired absence of other specified parts of digestive tract; Z80.3 Family history of malignant neoplasm of breast; Z81.8 Family history of other mental and behavioral disorders; Z83.1 Family history of other infectious and parasitic diseases; I25.2 Old myocardial infarction; Z86.73 Personal history of transient ischemic attack (TIA), and cerebral infarction without residual deficits; Z78.9 Other specified health status

== ENCOUNTER → 2025-01-26 | Outpatient (CLI) | payer MEDICARE ==
[~2025-01-26] MED LIST changes: +Fioricet 325 MG1 TAB PO; +Ondansetron4 MG PO
== END | disposition home or self-care (01) ==
LOC: ORTHO 01:35
PROVIDERS: ATTEND Orthopaedic Surgery
DX: M80.052D Age-related osteoporosis with current pathological fracture, left femur, subsequent encounter for fracture with routine healing (principal); M17.12 Unilateral primary osteoarthritis, left knee; M25.762 Osteophyte, left knee; M25.862 Other specified joint disorders, left knee

== ENCOUNTER → 2025-01-29 | Day surgery (SDC) | payer MEDICARE ==
[~2025-01-29] VITALS: Ht 167.6 cm; Wt 142.4 kg
[~2025-01-29] MED LIST changes: +ACETAMINOPHEN 100 ML IV ONE; +Dexamethasone Sodium Phospha 4 MG/ML VIAL IV ONE; +EPINEPHrine/Lidocaine Hydroc 20 ML VIAL ONE; +Lactated Ringer's Solution 1,000 ML IV ONE; +Lidocaine Hydrochloride 2% 5 ML SDV IM ONE; +Ondansetron Hydrochloride 4 MG/2 ML VIAL IV ONE; +PROPOFOL 200 MG/20 ML VIAL IV ONE; +SEVOFLURANE 250 ML BOT INH ONE; +ceFAZolin sodium/sodium chlor 30 ML IV ONE; +ePHEDrine Sulfate 25 MG/5 ML SYRINGE IV ONE
[2025-01-29 09:59] VITALS: BP 101/43
[2025-01-29 11:45] VITALS: BP 105/41
[2025-01-29 12:00] VITALS: BP 108/39
[2025-01-29 12:15] VITALS: BP 104/32
[2025-01-29 12:28] VITALS: BP 102/45
== END | disposition home or self-care (01) ==
LOC: SDC 01-27 12:30
PROVIDERS: ATTEND Orthopaedic Surgery
DX: T84.89XA Other specified complication of internal orthopedic prosthetic devices, implants and grafts, initial encounter (principal); J45.909 Unspecified asthma, uncomplicated; M19.90 Unspecified osteoarthritis, unspecified site; I11.0 Hypertensive heart disease with heart failure; I50.9 Heart failure, unspecified; I25.2 Old myocardial infarction; E78.00 Pure hypercholesterolemia, unspecified; Z88.1 Allergy status to other antibiotic agents; Y79.2 Prosthetic and other implants, materials and accessory orthopedic devices associated with adverse incidents

== ENCOUNTER → 2025-02-13 | Outpatient (CLI) | payer MEDICARE ==
[~2025-02-13] MED LIST changes: -ACETAMINOPHEN 100 ML IV ONE; -Dexamethasone Sodium Phospha 4 MG/ML VIAL IV ONE; -EPINEPHrine/Lidocaine Hydroc 20 ML VIAL ONE; -Lactated Ringer's Solution 1,000 ML IV ONE; -Lidocaine Hydrochloride 2% 5 ML SDV IM ONE; -Ondansetron Hydrochloride 4 MG/2 ML VIAL IV ONE; -PROPOFOL 200 MG/20 ML VIAL IV ONE; -SEVOFLURANE 250 ML BOT INH ONE; -ceFAZolin sodium/sodium chlor 30 ML IV ONE; -ePHEDrine Sulfate 25 MG/5 ML SYRINGE IV ONE
== END | disposition home or self-care (01) ==
LOC: ORTHO 09:59
PROVIDERS: ATTEND Orthopaedic Surgery
DX: M17.12 Unilateral primary osteoarthritis, left knee (principal); M25.462 Effusion, left knee; M85.88 Other specified disorders of bone density and structure, other site; M25.562 Pain in left knee

== ENCOUNTER → 2025-03-06 | Outpatient (CLI) | payer MEDICARE | END | disposition home or self-care (01) | LOC: ORTHO 08:21 | PROVIDERS: ATTEND Orthopaedic Surgery | DX: M17.12 Unilateral primary osteoarthritis, left knee (principal); M25.762 Osteophyte, left knee; M25.562 Pain in left knee; R60.0 Localized edema ==